=== PATIENT | male | born 1985 | race Caucasian/White ===

== ENCOUNTER 2016-09-23 16:33 | Inpatient (IN) | payer OTHER ==
[2016-09-23 19:24] VITALS: BMI 21.7
[2016-09-23] MEDS ORDERED: guaiFENesin/D-METHORPHAN HB 10 ML UNIT-DOSE CUPS PO PRN (21:04)
[2016-09-23] MEDS ORDERED: IBUPROFEN 400 MG TABLET (FP) PO PRN (21:04)
[2016-09-23] MEDS ORDERED: diazePAM 5 MG TABLET PO PRN (21:04)
[2016-09-23] MEDS ORDERED: MENTHOL/PHENOL 1 EACH UD MM PRN (21:04)
[2016-09-23] MEDS ORDERED: METHADONE HCL 10 MG TABLET (FOR DETOX USE ONLY) PO ONE ×2 (21:04→23:00)
[2016-09-23] MEDS ORDERED: ACETAMINOPHEN 325 MG TABLET (FP) PO PRN (21:04)
[2016-09-23] MEDS ORDERED: MAG HYDROX/AL HYDROX/SIMETH 30 ML UNIT-DOSE CUP PO PRN (21:04)
[2016-09-23] MEDS ORDERED: LOPERAMIDE HCL 2 MG CAPSULE PO PRN (21:04)
[2016-09-23] MEDS ORDERED: P-EPHED 60MG/TRIPROLIDI 2.5MG TABLET PO PRN (21:04)
[2016-09-23] MEDS ORDERED: MAGNESIUM HYDROX 2400MG/30ML ORAL SUSPENSION 30 ML CUP PO PRN (21:04)
[2016-09-23] MEDS ORDERED: MAGNESIUM CITRATE 300 ML BOTTLE PO PRN (21:04)
--- NOTE | 2016-09-23 21:04 | HP ---
COWS - Scale Resting Pulse: 1= [place] 81-100 Sweatin= Chills/Flushing Restless Observation: 3= Extraneous Movement Pupil Size: 0= Normal to Room Light Bone or Joint Aches: 2= Severe Diffuse Aches Runny Nose/ Eye Tearin= Runny Nose/Eyes GI Upset > 30mins: 1= Stomach Cramp Tremor Observation: 2= Slight Tremor Visible Yawning Observation: 0= None Anxiety or Irritability: 2=Irritable/Anxious Goose Flesh Skin: 3=Piloerection COWS Score: 17 Admission [facility] - HPI Chief Complaint: WITHDRAWAL SX Allergies/Adverse Reactions: Allergies Allergy/AdvReac Type Severity Reaction Status Date / Time No Known Allergies Allergy Verified 08/25/16 16:49 History of Present Illness: 31 YEARS OLD MALE WITH LONG HISTORY OF OPIATE DEPENDENCE, DENIES MEDICAL ISSUE HAS DEPRESSION, LONGEST SOBRIETY 5 MONTHS IS ADMITTED TO DETOX Exam Limitations: No Limitations - Ebola screening Have you traveled outside of the country in the last 21 days: No Have you had contact with anyone from an Ebola affected area: No Have you been sick,other than usual withdrawal symptoms: No Do you have a fever: No - Review of Systems Constitutional: Chills, Loss of Appetite, Changes in sleep, Unintentional Wgt. Loss EENT: reports: No Symptoms Reported Respiratory: reports: No Symptoms reported Cardiac: reports: No Symptoms Reported GI: reports: Constipated, Poor Fluid Intake, Abdominal cramping : reports: No Symptoms Reported Musculoskeletal: reports: Back Pain, Joint Pain, Muscle Pain, Neck Pain Integumentary: reports: No Symptoms Reported Neuro: reports: Tremors Endocrine: reports: No Symptoms Reported Hematology: reports: No Symptoms Reported Psychiatric: reports: Judgement Intact, Orientated x3, Depressed Other Systems: Reviewed and Negative Patient History - Patient Medical History Hx Anemia: No Hx Asthma: No Hx Chronic Obstructive Pulmonary Disease (COPD): No Hx Cancer: No Hx Cardiac Disorders: No Hx Congestive Heart Failure: No Hx Hypertension: No Hx Hypercholesterolemia: No Hx Pacemaker: No HX Cerebrovascular Accident: No Hx Seizures: No Hx Dementia: No Hx Diabetes: No Hx Gastrointestinal Disorders: No Hx Liver Disease: No Hx Genitourinary Disorders: No Hx Sexually Transmitted Disorders: No Hx Renal Disease (ESRD): No Hx Thyroid Disease: No Hx Human Immunodeficiency Virus (HIV): No (LAST 10/23 NEGATIVE) Hx Hepatitis C: No Hx Depression: No Hx Suicide Attempt: No Hx Bipolar Disorder: No Hx Schizophrenia: No - Patient Surgical History Past Surgical History: No Hx Neurologic Surgery: No Hx Cataract Extraction: No Hx Cardiac Surgery: No Hx Lung Surgery: No Hx Breast Surgery: No Hx Breast Biopsy: No Hx Abdominal Surgery: No Hx Appendectomy: No Hx Cholecystectomy: No Hx Genitourinary Surgery: No Hx Orthopedic Surgery: No - PPD History Previous Implant?: Yes Documented Results: Negative w/proof Implanted On Prior R Admission?: Yes Date: 05/12/16 Results: 0 MM PPD to be Administered?: No - Smoking Cessation Smoking history: Never smoked Have you smoked in the past 12 months: No Hx Chewing Tobacco Use: No Initiated information on smoking cessation: No - Substance & Tx. History Hx Alcohol Use: No Hx Substance Use: Yes Substance Use Type: Heroin, Opiates Hx Substance Use Treatment: Yes - Substances Abused Heroin Route: Inhalation Frequency: Daily Amount used: 10 BAGS Age of first use: 27 Date of Last Use: 09/23/16 Family Disease History - Family Disease History Family Disease History: [place]: Grandparent Admission Physical Exam BHS - Vital Signs Vital Signs: Vital Signs - 24 hr 09/23/16 19:22 Temperature 97.1 F L Pulse Rate 85 Respiratory 18 Rate Blood Pressure 123/79 - Physical General Appearance: Yes: Appropriately Dressed, Mild Distress, Thin, Tremorous, Irritable, Sweating, Anxious HEENTM: Yes: Hearing grossly Normal, Normal ENT Inspection, Normocephalic, Normal Voice Respiratory: Yes: Chest Non-Tender, Lungs Clear, Normal Breath Sounds, No Respiratory Distress, No Accessory Muscle Use Neck: Yes: Supple, Trachea in good position Breast: Yes: Breasts Symetrical Cardiology: Yes: Regular Rhythm, Regular Rate, S1, S2 Abdominal: Yes: Non Tender, Soft Genitourinary: Yes: Within Normal Limits Back: Yes: Normal Inspection Musculoskeletal: Yes: full range of Motion, Gait Steady, Back pain, Muscle Pain Extremities: Yes: Normal Inspection, Normal Range of Motion, Non-Tender, Tremors Neurological: Yes: Fully Oriented, Alert, Motor Strength 5/5, Normal Mood/Affect , Normal Response Integumentary: Yes: Warm Lymphatic: Yes: Within Normal Limits - Diagnostic (1) Opioid dependence with withdrawal Current Visit: Yes Status: Acute (2) Weight loss Current Visit: Yes Status: Acute (3) Depression (emotion) Current Visit: Yes Status: Suspected Qualifiers: Depression Type: dysthymia Qualified Code(s): F34.1 - Dysthymic disorder (4) Constipation Current Visit: Yes Status: Acute Qualifiers: Constipation type: slow transit constipation Qualified Code(s): K59.01 - Slow transit constipation Cleared for Admission [facility] - Detox or Rehab [facility] Level of Care: Medically Managed Detox Regimen/Protocol: Methadone [facility] Breath Alcohol Content Breath Alcohol Content: 0 Urine Drug Screen - Results Drug Screen Negative: No Urine Drug Screen Results: OPI-Opiates, BZO-Benzodiazepines, OXY-Oxycodone
[2016-09-23 23:30] LABS: URINE APPEARANCE CLEAR; URINE BILIRUBIN NEGATIVE (NEGATIVE); URINE BLOOD NEGATIVE (NEGATIVE); URINE COLOR YELLOW; URINE GLUCOSE (UA) NEGATIVE (NEGATIVE); URINE KETONE TRACE (NEGATIVE); URINE LEUK ESTERASE NEGATIVE (NEGATIVE); URINE NITRITE NEGATIVE (NEGATIVE); URINE PROTEIN NEGATIVE (NEGATIVE); URINE UROBILINOGEN NEGATIVE E.U./dl (0.2-1.0)
[2016-09-24] MEDS ORDERED: METHADONE HCL 10 MG TABLET (FOR DETOX USE ONLY) PO ONE ×4 (01:06→23:00)
[2016-09-24] MEDS: diazePAM 5 MG TABLET PO PRN ×4 (02:33→18:57)
[2016-09-24] MEDS: DOCUSATE SODIUM 100 MG CAPSULE (FP) PO SCH ×3 (04:46→22:04)
[2016-09-24] MEDS: THIAMINE HCL 100 MG TABLET (FP) PO SCH ×2 (04:47→22:04)
--- NOTE | 2016-09-24 10:13 | PN ---
BHS COWS - Scale Resting Pulse: 0= [place] 80 or Below Sweatin= Chills/Flushing Restless Observation: 3= Extraneous Movement Pupil Size: 2= Moderately Dilated Bone or Joint Aches: 4=Acute Joint/Muscle Pain Runny Nose/ Eye Tearin= Nasal Congestion GI Upset > 30mins: 1= Stomach Cramp Tremor Observation of Outstretched Hands: 2= Slight Tremor Visible Yawning Observation: 2= >3x During Session Anxiety or Irritability: 2=Irritable/Anxious Goose Flesh Skin: 0=Smooth Skin COWS Score: 18 BHS Progress Note (SOAP) Subjective: SLIGHT ANXIETY,SWEATS, FATIGUE Objective: 09/24/16 10:14 Vital Signs Temperature 98.5 F 09/24/16 06:25 Pulse Rate 78 09/24/16 06:25 Respiratory Rate 16 09/24/16 06:25 Blood Pressure 102/76 09/24/16 06:25 O2 Sat by Pulse Oximetry (%) Laboratory Last Values Urine Color Yellow 09/23/16 22:27 Urine Appearance Clear 09/23/16 22:27 Urine pH 7.0 (5.0-8.0) 09/23/16 22:27 Ur Specific [place] 1.024 (1.001-1.035) 09/23/16 22:27 Urine Protein Negative (NEGATIVE) 09/23/16 22:27 Urine Glucose (UA) Negative (NEGATIVE) 09/23/16 22:27 Urine Ketones Trace (NEGATIVE) H 09/23/16 22:27 Urine Blood Negative (NEGATIVE) 09/23/16 22:27 Urine Nitrite Negative (NEGATIVE) 09/23/16 22:27 Urine Bilirubin Negative (NEGATIVE) 09/23/16 22:27 Urine Urobilinogen Negative E.U./dl (0.2-1.0) 09/23/16 22:27 Ur Leukocyte Esterase Negative (NEGATIVE) 09/23/16 22:27 OTHER LABS PENDING Assessment: 09/24/16 10:15 WITHDRAWAL SX Plan: CONTINUE DETOX
[2016-09-24] MEDS: PRENATAL VITAMINS W/ FOLIC ACID TABLET (FP) PO SCH (10:15)
[2016-09-24 10:30] LABS: ALBUMIN 3.6 g/dl (3.4-5.0); ANION GAP 5 (8-16); BILIRUBIN,TOTAL 0.3 mg/dL (0.2-1.0); CALCIUM 8.3 mg/dL (8.5-10.1); CO2 33 mmol/L (21-32); CREATININE 1.1 mg/dL (0.7-1.3); GLUCOSE,RANDOM 96 mg/dL (74-106); SGOT/AST 39 U/L (15-37); SGPT/ALT 28 U/L (12-78); TOT PROT 6.6 g/dl (6.4-8.2)
[2016-09-24 10:31] LABS: ALK PHOS 61 U/L (45-117)
[2016-09-24 10:42] LABS: MCH 30.8 pg (25.7-33.7); MCHC 34.3 g/dl (32.0-35.9); MEAN PLT VOLUME 8.2 fl (7.5-11.1); PLATELET COUNT 213 K/MM3 (134-434); RDW 13.1 % (11.9-15.9)
--- NOTE | 2016-09-24 11:50 | EKG ---
Test Reason : Blood Pressure : / mmHG Vent. Rate : 057 BPM Atrial Rate : 057 BPM P-R Int : 168 ms QRS Dur : 094 ms QT Int : 424 ms P-R-T Axes : 075 043 042 degrees QTc Int : 412 ms SINUS BRADYCARDIA POSSIBLE LEFT ATRIAL ENLARGEMENT INCOMPLETE RIGHT BUNDLE BRANCH BLOCK BORDERLINE ECG NO PREVIOUS ECGS AVAILABLE Confirmed by JAMI GOYAL, [place]NE ([id number]) on 09/24/2016 11:50:23 AM Referred By: Christian Chan Confirmed By:CHEYENNE FARRELL MD
--- NOTE | 2016-09-24 11:59 | CONSULT ---
[facility] Psychiatric Consult - Data Date of interview: 09/24/16 Admission source: [facility] Identifying data: This is one of the multiple admissions to [address] [place] [address] for this 31 years old single male admitted for Opioid dependence. Psychiatric History: Patient reports depressed mood on and off,medicated himself with Heroin.No suicidal attempts,no previous psychiatric treatment reported.Patient is willing to start Lexapro. Physical/Sexual Abuse/Trauma History: denies Mental Status Exam - Mental Status Exam Alert and Oriented to: Time, Place, Person Cognitive Function: Grossly Intact Patient Appearance: Unkempt Mood: Sad, Anxious Affect: Mood Congruent Patient Behavior: Cooperative Speech Pattern: Clear Voice Loudness: Normal Thought Process: Goal Oriented Thought Disorder: Not Present Hallucinations: Denies Suicidal Ideation: Denies Homicidal Ideation: Denies Insight/Judgement: Fair Sleep: Fair Appetite: Good Muscle strength/Tone: Normal Gait/Station: Normal Psychiatric Findings - Problem List ([place] 1, 2,3) (1) Opioid dependence with withdrawal Current Visit: Yes Status: Chronic (2) Substance induced mood disorder Current Visit: Yes Status: Chronic (3) Benzodiazepine abuse Current Visit: Yes Status: Chronic - Initial Treatment Plan Initial Treatment Plan: Start lexapro 5 mg po daily.
[2016-09-24] MEDS: ESCITALOPRAM OXALATE 10 MG TABLET (FP) PO SCH (12:43)
[2016-09-24] MEDS: diphenhydrAMINE HCL 50 MG CAPSULE PO PRN (22:05)
[2016-09-25] MEDS: diazePAM 5 MG TABLET PO PRN ×4 (02:43→22:05)
[2016-09-25] MEDS ORDERED: METHADONE HCL 5 MG TABLET (FOR DETOX USE ONLY) PO ONE (10:00)
[2016-09-25] MEDS ORDERED: METHADONE HCL 10 MG TABLET (FOR DETOX USE ONLY) PO ONE (10:00)
[2016-09-25] MEDS: DOCUSATE SODIUM 100 MG CAPSULE (FP) PO SCH ×2 (10:20→22:07)
[2016-09-25] MEDS: ESCITALOPRAM OXALATE 10 MG TABLET (FP) PO SCH (10:20)
[2016-09-25] MEDS: PRENATAL VITAMINS W/ FOLIC ACID TABLET (FP) PO SCH (10:20)
--- NOTE | 2016-09-25 10:36 | PN ---
BHS COWS - Scale Resting Pulse: 0= [place] 80 or Below Sweatin= Chills/Flushing Restless Observation: 3= Extraneous Movement Pupil Size: 0= Normal to Room Light Bone or Joint Aches: 4=Acute Joint/Muscle Pain Runny Nose/ Eye Tearin= Nasal Congestion GI Upset > 30mins: 1= Stomach Cramp Tremor Observation of Outstretched Hands: 1= Tremor [place], Not Seen Yawning Observation: 2= >3x During Session Anxiety or Irritability: 2=Irritable/Anxious Goose Flesh Skin: 0=Smooth Skin COWS Score: 15 BHS Progress Note (SOAP) Subjective: ANXIETY,SWEATS,INTERMITTENT SLEEP Objective: 09/25/16 10:35 Vital Signs Temperature 96.8 F L 09/25/16 10:15 Pulse Rate 67 09/25/16 10:15 Respiratory Rate 18 09/25/16 10:15 Blood Pressure 112/71 09/25/16 10:15 O2 Sat by Pulse Oximetry (%) Laboratory Last Values WBC 5.0 K/mm3 (4.0-10.0) 09/24/16 07:00 RBC 4.35 M/mm3 (4.00-5.60) 09/24/16 07:00 Hgb 13.4 GM/dL (11.7-16.9) 09/24/16 07:00 Hct 39.2 % (35.4-49) 09/24/16 07:00 MCV 90.0 fl (80-96) 09/24/16 07:00 MCHC 34.3 g/dl (32.0-35.9) 09/24/16 07:00 RDW 13.1 % (11.9-15.9) 09/24/16 07:00 Plt Count 213 K/MM3 (134-434) 09/24/16 07:00 MPV 8.2 fl (7.5-11.1) 09/24/16 07:00 Sodium 140 mmol/L (136-145) 09/24/16 07:00 Potassium 3.7 mmol/L (3.5-5.1) 09/24/16 07:00 Chloride 102 mmol/L (98-107) 09/24/16 07:00 Carbon Dioxide 33 mmol/L (21-32) H 09/24/16 07:00 Anion Gap 5 (8-16) L 09/24/16 07:00 BUN 23 mg/dL (7-18) H D 09/24/16 07:00 Creatinine 1.1 mg/dL (0.7-1.3) 09/24/16 07:00 Creat Clearance w eGFR > 60 (>60) 09/24/16 07:00 Random Glucose 96 mg/dL (74-106) 09/24/16 07:00 Calcium 8.3 mg/dL (8.5-10.1) L 09/24/16 07:00 Total Bilirubin 0.3 mg/dL (0.2-1.0) D 09/24/16 07:00 AST 39 U/L (15-37) H D 09/24/16 07:00 ALT 28 U/L (12-78) D 09/24/16 07:00 Alkaline Phosphatase 61 U/L (45-117) 09/24/16 07:00 Total Protein 6.6 g/dl (6.4-8.2) 09/24/16 07:00 Albumin 3.6 g/dl (3.4-5.0) 09/24/16 07:00 Urine Color Yellow 09/23/16 22:27 Urine Appearance Clear 09/23/16 22:27 Urine pH 7.0 (5.0-8.0) 09/23/16 22:27 Ur Specific [place] 1.024 (1.001-1.035) 09/23/16 22:27 Urine Protein Negative (NEGATIVE) 09/23/16 22:27 Urine Glucose (UA) Negative (NEGATIVE) 09/23/16 22:27 Urine Ketones Trace (NEGATIVE) H 09/23/16 22:27 Urine Blood Negative (NEGATIVE) 09/23/16 22:27 Urine Nitrite Negative (NEGATIVE) 09/23/16 22:27 Urine Bilirubin Negative (NEGATIVE) 09/23/16 22:27 Urine Urobilinogen Negative E.U./dl (0.2-1.0) 09/23/16 22:27 Ur Leukocyte Esterase Negative (NEGATIVE) 09/23/16 22:27 RPR Titer Nonreactive (NONREACTIVE) 09/24/16 07:00 Assessment: 09/25/16 10:36 WITHDRAWAL SX Plan: CONTINUE DETOX
[2016-09-25] MEDS: THIAMINE HCL 100 MG TABLET (FP) PO SCH (22:04)
[2016-09-25] MEDS: diphenhydrAMINE HCL 50 MG CAPSULE PO PRN (22:05)
[2016-09-26] MEDS: diazePAM 5 MG TABLET PO PRN ×4 (05:46→22:07)
[2016-09-26] MEDS ORDERED: METHADONE HCL 5 MG TABLET (FOR DETOX USE ONLY) PO ONE ×2 (10:00)
[2016-09-26] MEDS: PRENATAL VITAMINS W/ FOLIC ACID TABLET (FP) PO SCH (10:29)
[2016-09-26] MEDS: ESCITALOPRAM OXALATE 10 MG TABLET (FP) PO SCH (10:29)
[2016-09-26] MEDS: DOCUSATE SODIUM 100 MG CAPSULE (FP) PO SCH ×2 (10:29→22:05)
--- NOTE | 2016-09-26 10:57 | PN ---
BHS Progress Note (SOAP) Subjective: DECREASED ANXIETY,TREMORS,SWEATS, SLEPT WELL. Objective: 09/26/16 10:57 Vital Signs Temperature 97.5 F L 09/26/16 10:10 Pulse Rate 67 09/26/16 10:10 Respiratory Rate 18 09/26/16 10:10 Blood Pressure 107/72 09/26/16 10:10 O2 Sat by Pulse Oximetry (%) Assessment: 09/26/16 10:57 DECREASED WITHDRAWAL SX Plan: CONTINUE DETOX
[2016-09-26] MEDS: diphenhydrAMINE HCL 50 MG CAPSULE PO PRN (22:05)
[2016-09-26] MEDS: THIAMINE HCL 100 MG TABLET (FP) PO SCH (22:05)
[2016-09-27] MEDS ORDERED: METHADONE HCL 5 MG TABLET (FOR DETOX USE ONLY) PO ONE (10:00)
[2016-09-27] MEDS ORDERED: METHADONE HCL 10 MG TABLET (FOR DETOX USE ONLY) PO ONE (10:00)
[2016-09-27] MEDS: DOCUSATE SODIUM 100 MG CAPSULE (FP) PO SCH ×2 (10:19→22:40)
[2016-09-27] MEDS: PRENATAL VITAMINS W/ FOLIC ACID TABLET (FP) PO SCH (10:19)
[2016-09-27] MEDS: ESCITALOPRAM OXALATE 10 MG TABLET (FP) PO SCH (10:21)
--- NOTE | 2016-09-27 11:15 | PN ---
BHS Progress Note (SOAP) Subjective: shakes and sweats Objective: 09/27/16 11:13 Vital Signs - 8 hr 09/27/16 09/27/16 09/27/16 03:30 06:29 10:59 Temperature 98.7 F 97.4 F L Pulse Rate 67 71 Respiratory 18 18 18 Rate Blood Pressure 95/60 104/66 Laboratory Last Values WBC 5.0 K/mm3 (4.0-10.0) 09/24/16 07:00 RBC 4.35 M/mm3 (4.00-5.60) 09/24/16 07:00 Hgb 13.4 GM/dL (11.7-16.9) 09/24/16 07:00 Hct 39.2 % (35.4-49) 09/24/16 07:00 MCV 90.0 fl (80-96) 09/24/16 07:00 MCHC 34.3 g/dl (32.0-35.9) 09/24/16 07:00 RDW 13.1 % (11.9-15.9) 09/24/16 07:00 Plt Count 213 K/MM3 (134-434) 09/24/16 07:00 MPV 8.2 fl (7.5-11.1) 09/24/16 07:00 Sodium 140 mmol/L (136-145) 09/24/16 07:00 Potassium 3.7 mmol/L (3.5-5.1) 09/24/16 07:00 Chloride 102 mmol/L (98-107) 09/24/16 07:00 Carbon Dioxide 33 mmol/L (21-32) H 09/24/16 07:00 Anion Gap 5 (8-16) L 09/24/16 07:00 BUN 23 mg/dL (7-18) H D 09/24/16 07:00 Creatinine 1.1 mg/dL (0.7-1.3) 09/24/16 07:00 Creat Clearance w eGFR > 60 (>60) 09/24/16 07:00 Random Glucose 96 mg/dL (74-106) 09/24/16 07:00 Calcium 8.3 mg/dL (8.5-10.1) L 09/24/16 07:00 Total Bilirubin 0.3 mg/dL (0.2-1.0) D 09/24/16 07:00 AST 39 U/L (15-37) H D 09/24/16 07:00 ALT 28 U/L (12-78) D 09/24/16 07:00 Alkaline Phosphatase 61 U/L (45-117) 09/24/16 07:00 Total Protein 6.6 g/dl (6.4-8.2) 09/24/16 07:00 Albumin 3.6 g/dl (3.4-5.0) 09/24/16 07:00 Urine Color Yellow 09/23/16 22:27 Urine Appearance Clear 09/23/16 22:27 Urine pH 7.0 (5.0-8.0) 09/23/16 22:27 Ur Specific [place] 1.024 (1.001-1.035) 09/23/16 22:27 Urine Protein Negative (NEGATIVE) 09/23/16 22:27 Urine Glucose (UA) Negative (NEGATIVE) 09/23/16 22:27 Urine Ketones Trace (NEGATIVE) H 09/23/16 22:27 Urine Blood Negative (NEGATIVE) 09/23/16 22:27 Urine Nitrite Negative (NEGATIVE) 09/23/16 22:27 Urine Bilirubin Negative (NEGATIVE) 09/23/16 22:27 Urine Urobilinogen Negative E.U./dl (0.2-1.0) 09/23/16 22:27 Ur Leukocyte Esterase Negative (NEGATIVE) 09/23/16 22:27 RPR Titer Nonreactive (NONREACTIVE) 09/24/16 07:00 Labs noted Assessment: 09/27/16 11:14 withdrawal sx Plan: continue detox
[2016-09-27] MEDS: THIAMINE HCL 100 MG TABLET (FP) PO SCH (22:39)
[2016-09-27] MEDS: diphenhydrAMINE HCL 50 MG CAPSULE PO PRN (22:40)
[2016-09-28] MEDS ORDERED: METHADONE HCL 5 MG TABLET (FOR DETOX USE ONLY) PO ONE (06:00)
[2016-09-28] MEDS ORDERED: METHADONE HCL 10 MG TABLET (FOR DETOX USE ONLY) PO ONE (10:00)
[2016-09-28] MEDS: PRENATAL VITAMINS W/ FOLIC ACID TABLET (FP) PO SCH (10:24)
[2016-09-28] MEDS: DOCUSATE SODIUM 100 MG CAPSULE (FP) PO SCH ×2 (10:26→22:26)
[2016-09-28] MEDS: ESCITALOPRAM OXALATE 10 MG TABLET (FP) PO SCH (10:26)
--- NOTE | 2016-09-28 11:25 | PN ---
BHS Progress Note (SOAP) Subjective: Sweating, anxious, restless Objective: 09/28/16 11:22 Last Vital Signs Temp Pulse Resp BP Pulse Ox 98.1 F 70 18 96/68 09/28/16 06:21 09/28/16 06:21 09/28/16 06:21 09/28/16 06:21 Laboratory Tests 09/23/16 09/24/16 09/24/16 22:27 07:00 07:00 WBC 5.0 RBC 4.35 Hgb 13.4 Hct 39.2 MCV 90.0 MCHC 34.3 RDW 13.1 Plt Count 213 MPV 8.2 Sodium 140 Potassium 3.7 Chloride 102 Carbon Dioxide 33 H Anion Gap 5 L BUN 23 H D Creatinine 1.1 Creat Clearance w eGFR > 60 Random Glucose 96 Calcium 8.3 L Total Bilirubin 0.3 D AST 39 H D ALT 28 D Alkaline Phosphatase 61 Total Protein 6.6 Albumin 3.6 Urine Color Yellow Urine Appearance Clear Urine pH 7.0 Ur Specific [place] 1.024 Urine Protein Negative Urine Glucose (UA) Negative Urine Ketones Trace H Urine Blood Negative Urine Nitrite Negative Urine Bilirubin Negative Urine Urobilinogen Negative Ur Leukocyte Esterase Negative RPR Titer 09/24/16 07:00 WBC RBC Hgb Hct MCV MCHC RDW Plt Count MPV Sodium Potassium Chloride Carbon Dioxide Anion Gap BUN Creatinine Creat Clearance w eGFR Random Glucose Calcium Total Bilirubin AST ALT Alkaline Phosphatase Total Protein Albumin Urine Color Urine Appearance Urine pH Ur Specific [place] Urine Protein Urine Glucose (UA) Urine Ketones Urine Blood Urine Nitrite Urine Bilirubin Urine Urobilinogen Ur Leukocyte Esterase RPR Titer Nonreactive Labs noted: azotemia Assessment: 09/28/16 11:23 Withdrawal symptoms Anxiety: requesting vistaril Noted with azotemia Plan: Continue detox Anxiety: vistaril 50mg PO q6hr prn, encouraged relaxation techniques (deep breathing exercises, watching TV etc) Azotemia: encouraged to drink lots of water
[2016-09-28] MEDS: hydrOXYzine PAMOATE 50 MG CAPSULE (FP) PO PRN (17:01)
[2016-09-28] MEDS: THIAMINE HCL 100 MG TABLET (FP) PO SCH (22:26)
[2016-09-29] MEDS: hydrOXYzine PAMOATE 50 MG CAPSULE (FP) PO PRN (05:32)
[2016-09-29] MEDS ORDERED: METHADONE HCL 5 MG TABLET (FOR DETOX USE ONLY) PO ONE (06:00)
[2016-09-29] MEDS: PRENATAL VITAMINS W/ FOLIC ACID TABLET (FP) PO SCH (09:21)
[2016-09-29] MEDS: ESCITALOPRAM OXALATE 10 MG TABLET (FP) PO SCH (09:21)
[2016-09-29] MEDS: DOCUSATE SODIUM 100 MG CAPSULE (FP) PO SCH (09:22)
[2016-09-29 09:28] VITALS: BP 128/80; PULSE 90; TEMP 97.8
--- NOTE | 2016-09-29 10:33 | DS ---
[facility] Detox Discharge Summary Admission Date: 09/23/16 Discharge Date: 09/29/16 - History Present History: Opioid Dependence Pertinent Past History: MOOD DISORDER - Physical Exam Results Vital Signs: Vital Signs Temperature 97.8 F 09/29/16 09:28 Pulse Rate 90 09/29/16 09:28 Respiratory Rate 18 09/29/16 09:28 Blood Pressure 128/80 09/29/16 09:28 O2 Sat by Pulse Oximetry (%) Pertinent Admission Physical Exam Findings: WITHDRAWAL SX. Laboratory Last Values WBC 5.0 K/mm3 (4.0-10.0) 09/24/16 07:00 RBC 4.35 M/mm3 (4.00-5.60) 09/24/16 07:00 Hgb 13.4 GM/dL (11.7-16.9) 09/24/16 07:00 Hct 39.2 % (35.4-49) 09/24/16 07:00 MCV 90.0 fl (80-96) 09/24/16 07:00 MCHC 34.3 g/dl (32.0-35.9) 09/24/16 07:00 RDW 13.1 % (11.9-15.9) 09/24/16 07:00 Plt Count 213 K/MM3 (134-434) 09/24/16 07:00 MPV 8.2 fl (7.5-11.1) 09/24/16 07:00 Sodium 140 mmol/L (136-145) 09/24/16 07:00 Potassium 3.7 mmol/L (3.5-5.1) 09/24/16 07:00 Chloride 102 mmol/L (98-107) 09/24/16 07:00 Carbon Dioxide 33 mmol/L (21-32) H 09/24/16 07:00 Anion Gap 5 (8-16) L 09/24/16 07:00 BUN 23 mg/dL (7-18) H D 09/24/16 07:00 Creatinine 1.1 mg/dL (0.7-1.3) 09/24/16 07:00 Creat Clearance w eGFR > 60 (>60) 09/24/16 07:00 Random Glucose 96 mg/dL (74-106) 09/24/16 07:00 Calcium 8.3 mg/dL (8.5-10.1) L 09/24/16 07:00 Total Bilirubin 0.3 mg/dL (0.2-1.0) D 09/24/16 07:00 AST 39 U/L (15-37) H D 09/24/16 07:00 ALT 28 U/L (12-78) D 09/24/16 07:00 Alkaline Phosphatase 61 U/L (45-117) 09/24/16 07:00 Total Protein 6.6 g/dl (6.4-8.2) 09/24/16 07:00 Albumin 3.6 g/dl (3.4-5.0) 09/24/16 07:00 Urine Color Yellow 09/23/16 22:27 Urine Appearance Clear 09/23/16 22:27 Urine pH 7.0 (5.0-8.0) 09/23/16 22:27 Ur Specific [place] 1.024 (1.001-1.035) 09/23/16 22:27 Urine Protein Negative (NEGATIVE) 09/23/16 22:27 Urine Glucose (UA) Negative (NEGATIVE) 09/23/16 22:27 Urine Ketones Trace (NEGATIVE) H 09/23/16 22:27 Urine Blood Negative (NEGATIVE) 09/23/16 22:27 Urine Nitrite Negative (NEGATIVE) 09/23/16 22:27 Urine Bilirubin Negative (NEGATIVE) 09/23/16 22:27 Urine Urobilinogen Negative E.U./dl (0.2-1.0) 09/23/16 22:27 Ur Leukocyte Esterase Negative (NEGATIVE) 09/23/16 22:27 RPR Titer Nonreactive (NONREACTIVE) 09/24/16 07:00 LABS NOTED - Treatment Hospital Course: Detox Protocol Followed, Detoxed Safely, Responded well, Discharged Condition Good, Rehab Referral Accepted - Medication Discharge Medications: Ambulatory Orders Escitalopram Oxalate [Lexapro -] 5 mg PO DAILY #30 tablet 09/24/16 - Diagnosis (1) Opioid dependence with withdrawal Current Visit: Yes Status: Chronic (2) Substance induced mood disorder Current Visit: Yes Status: Chronic - AMA Did Patient Leave Against Medical Advice: No
== END 2016-09-29 10:49 | disposition other institution (70) | DRG 773 ==
LOC: YASAS 16:33 → Y3N 21:41
PROVIDERS: ADMIT Internal Medicine; ATTEND Internal Medicine
PROC: HZ2ZZZZ Detoxification Services for Substance Abuse Treatment (ICD-10-PCS; principal; 2016-09-23)
DX: F11.23 Opioid dependence with withdrawal (principal); F13.10 Sedative, hypnotic or anxiolytic abuse, uncomplicated; F19.24 Other psychoactive substance dependence with psychoactive substance-induced mood disorder; F41.9 Anxiety disorder, unspecified; F34.1 Dysthymic disorder; K59.01 Slow transit constipation; Z87.898 Personal history of other specified conditions
CPT/HCPCS: 36415; 80053; 81003; 85027; 86593; 93005; 93010

== ENCOUNTER 2016-09-29 10:57 | Inpatient (IN) | payer OTHER ==
[2016-09-29 11:22] VITALS: BP 110/68; PULSE 62; TEMP 97.8; BMI 23.0
--- NOTE | 2016-09-29 11:41 | HP ---
Psychiatrist Admission - Data Date of interview: 09/29/16 Admission source: [facility] Identifying data: This is the first [facility] admission for this 31 years old single male, unemployed with no source of income, domiciled living with his parents Medical History: Unremarkable Psychiatric History: Denies history of previous psychiatric treatment prior to his recent admission to detox in this facility. There, he was seen by Dr Bragg who started him on lexapro 5 mg po daily for depression. Reports that he told Dr Bragg about feeling depressed on & off and medicated self with heroin. Told functional tester typewriters that he only feels depressed when he stopped using heroin. He does not think that he suffers from depression and needs to take medication. At present, reports doing and sleeping well Physical/Sexual Abuse/Trauma History: Denies history of physical,sexual abuse as well as DV relationship Additional Comment: Reports history of a misdemeanor arrest. Denies being on probation at present Vital Signs: Vital Signs - 24 hr 09/29/16 11:08 Temperature 97.8 F Pulse Rate 62 Respiratory 20 Rate Blood Pressure 110/68 Allergies/Adverse Reactions: Allergies Allergy/AdvReac Type Severity Reaction Status Date / Time No Known Allergies Allergy Verified 09/24/16 03:35 Date of last physical exam: 09/23/16 Concur with the findings of this exam: Yes - Substance Abuse/Tx History Hx Alcohol Use: No Hx Substance Use: Yes Substance Use Type: Heroin (Started using heroin at age 27, consumes 10 bagsdaily. Last used on 09/23/16) Hx Substance Use Treatment: Yes (6 previous inpt & 2 previous inpt rehab) - Admission Criteria Previous failed treatment: Yes Poor recovery environment: Yes Comorbidities: No Lacks judgement: Yes Mental Status Exam - Mental Status Exam Alert and Oriented to: Time, Place, Person Cognitive Function: Fair Patient Appearance: Well Groomed Mood: Hopeful, Euthymic Patient Behavior: Cooperative Speech Pattern: Clear Voice Loudness: Normal Thought Process: Intact Thought Disorder: Not Present Hallucinations: Denies Suicidal Ideation: Denies Homicidal Ideation: Denies Insight/Judgement: Fair Sleep: Fair Appetite: Good Muscle strength/Tone: Normal Gait/Station: Normal Psychiatric Findings - Problem List ([place] 1, 2,3) (1) Opioid dependence with withdrawal Current Visit: No Status: Chronic - Initial Treatment Plan Initial Treatment Plan: Monitor progress
[2016-09-29] MEDS ORDERED: MAGNESIUM HYDROX 2400MG/30ML ORAL SUSPENSION 30 ML CUP PO PRN (12:26)
[2016-09-29] MEDS ORDERED: P-EPHED 60MG/TRIPROLIDI 2.5MG TABLET PO PRN (12:26)
[2016-09-29] MEDS ORDERED: MENTHOL/PHENOL 1 EACH UD MM PRN (12:26)
[2016-09-29] MEDS ORDERED: IBUPROFEN 400 MG TABLET (FP) PO PRN (12:26)
[2016-09-29] MEDS ORDERED: ACETAMINOPHEN 325 MG TABLET (FP) PO PRN (12:26)
[2016-09-29] MEDS ORDERED: LOPERAMIDE HCL 2 MG CAPSULE PO PRN (12:26)
[2016-09-29] MEDS ORDERED: diphenhydrAMINE HCL 50 MG CAPSULE PO PRN (12:26)
[2016-09-29] MEDS ORDERED: guaiFENesin/D-METHORPHAN HB 10 ML UNIT-DOSE CUPS PO PRN (12:26)
[2016-09-29] MEDS ORDERED: MAGNESIUM CITRATE 300 ML BOTTLE PO PRN (12:26)
[2016-09-29] MEDS ORDERED: MAG HYDROX/AL HYDROX/SIMETH 30 ML UNIT-DOSE CUP PO PRN (12:26)
--- NOTE | 2016-09-29 14:35 | PN ---
Psychiatric Progress Note Vital Signs: Vital Signs Period Temp Pulse Resp BP Sys/Choudhary Pulse Ox Last 24 Hr 97.8 F 62 20 110/68 Date of Session: 09/29/16 Chief Complaint:: AMA Psychiatrist Discharge Note HPI: Patient addressing Opoid Dependence Current Medications: Active Medications Generic Name Dose Route Start Last Admin Trade Name Freq PRN Reason Stop Dose Admin Acetaminophen 650 mg 09/29/16 12:26 Tylenol - PO Q4H PRN FEVER OR PAIN Al Hydroxide/Mg Hydroxide 30 ml 09/29/16 12:26 Mylanta Oral Suspension - PO Q6H PRN DYSPEPSIA Diphenhydramine HCl 50 mg 09/29/16 12:26 Benadryl - PO HSMR1 PRN FOR ITCHING Eucalyptus/Menthol/Phenol/Sorbitol 1 each 09/29/16 12:26 Cepastat Lozenge - MM Q4H PRN SORE THROAT Guaifenesin 10 ml 09/29/16 12:26 Robitussin Dm - PO Q6H PRN COUGH Ibuprofen 400 mg 09/29/16 12:26 Motrin - PO Q6H PRN PAIN Loperamide HCl 4 mg 09/29/16 12:26 Imodium - PO Q6H PRN DIARRHEA Magnesium Citrate 300 ml 09/29/16 12:26 Citroma - PO 10/01/16 12:27 Q48H PRN CONSTIPATION Magnesium Hydroxide 30 ml 09/29/16 12:26 Milk Of Magnesia - PO DAILY PRN CONSTIPATION Multivit/Folic Acid/Iron 1 tab 09/30/16 10:00 Vitamins (Sjr) - PO DAILY ANALIA Pseudoephedrine/Triprolidine 1 combo 09/29/16 12:26 Actifed - PO TID PRN NASAL CONGESTION Thiamine HCl 100 mg 09/29/16 22:00 Vitamin B1 - PO HS ANALIA Current Side Effect: No Lab tests ordered: Yes Lab tests reviewed: Yes Provider note:: Patient requests to leave against medical advice today. He told documentation writer that he cannot deal with the "schedule". He is determined to leave despite encouragement to stay and complete this program. He is stable for discharge AMA Total face to face time:: 25 Mental Status Exam - Mental Status Exam Alert and Oriented to: Time, Place, Person Cognitive Function: Fair Patient Appearance: Well Groomed Mood: Hopeful Affect: Appropriate Patient Behavior: Cooperative Speech Pattern: Clear Voice Loudness: Normal Thought Process: Intact Thought Disorder: Not Present Hallucinations: Denies Suicidal Ideation: Denies Homicidal Ideation: Denies Insight/Judgement: Poor Appetite: Good Muscle strength/Tone: Normal Gait/Station: Normal Psychiatric Treatment Plan - Problem List (1) Opioid dependence with withdrawal Current Visit: No Initial treatment plan: Patient is leaving A
--- NOTE | 2016-09-29 16:10 | HP ---
ANDER GOYAL Rehab Assess/Revision - Admission History Ad[facility] to Rehab [facility] Date of Admission to Rehab: 09/29/16 - Vital signs Vital Signs: Vital Signs Period Temp Pulse Resp BP Sys/Choudhary Pulse Ox Last 24 Hr 97.8 F 62 20 110/68 - Findings Detox History & Physical reviewed: Yes Concur with findings: Yes Comments/Additional Findings: trasnferred from detox to rehab admission as per protocol
[2016-09-29] MEDS ORDERED: THIAMINE HCL 100 MG TABLET (FP) PO SCH (22:00)
[2016-09-30] MEDS ORDERED: PRENATAL VITAMINS W/ FOLIC ACID TABLET (FP) PO SCH (10:00)
== END 2016-09-29 15:00 | disposition left against medical advice (07) | DRG 770 ==
LOC: YASAS 10:57 → Y3W 10:58
PROVIDERS: ADMIT Psychiatry & Neurology Psychiatry; ATTEND Psychiatry & Neurology Psychiatry
PROC: HZ42ZZZ Group Counseling for Substance Abuse Treatment, Cognitive-Behavioral (ICD-10-PCS; principal; 2016-09-29)
DX: F11.20 Opioid dependence, uncomplicated (principal)

== ENCOUNTER 2017-06-15 15:54 | Inpatient (IN) | payer OTHER ==
[2017-06-15 18:29] VITALS: BMI 21.5
--- NOTE | 2017-06-15 20:03 | HP ---
COWS - Scale Resting Pulse: 0= [place] 80 or Below Sweatin= Chills/Flushing Restless Observation: 1= Difficult to Sit Still Pupil Size: 0= Normal to Room Light Bone or Joint Aches: 2= Severe Diffuse Aches Runny Nose/ Eye Tearin= Runny Nose/Eyes GI Upset > 30mins: 2= Nausea/Diarrhea Tremor Observation: 2= Slight Tremor Visible Yawning Observation: 1= 1-2x During Session Anxiety or Irritability: 2=Irritable/Anxious Goose Flesh Skin: 0=Smooth Skin COWS Score: 13 Admission ROS S - [facility] Chief Complaint: withdrawal sx patient refuses to meet with the psychiatrist while in detox Allergies/Adverse Reactions: Allergies Allergy/AdvReac Type Severity Reaction Status Date / Time No Known Allergies Allergy Verified 06/15/17 19:09 History of Present Illness: 31 years old male with long history of heroin dependence has weight loss, denies mental illness is admitted to detox Exam Limitations: No Limitations - Ebola screening Have you traveled outside of the country in the last 21 days: No Have you had contact with anyone from an Ebola affected area: No Have you been sick,other than usual withdrawal symptoms: No Do you have a fever: No - Review of Systems Constitutional: Loss of Appetite, Changes in sleep, Unintentional Wgt. Loss, Unexplained wgt Loss EENT: reports: No Symptoms Reported Respiratory: reports: No Symptoms reported Cardiac: reports: No Symptoms Reported GI: reports: Nausea, Poor Appetite, Poor Fluid Intake, Abdominal cramping : reports: No Symptoms Reported Musculoskeletal: reports: Back Pain, Joint Pain, Muscle Pain, Neck Pain Integumentary: reports: Change in Color (both inner elbows) Neuro: reports: Tremors Endocrine: reports: No Symptoms Reported Hematology: reports: No Symptoms Reported Psychiatric: reports: Judgement Intact, Mood/Affect Appropiate, Orientated x3 Other Systems: Reviewed and Negative Patient History - Patient Medical History Hx Anemia: No Hx Asthma: No Hx Chronic Obstructive Pulmonary Disease (COPD): No Hx Cancer: No Hx Cardiac Disorders: No Hx Congestive Heart Failure: No Hx Hypertension: No Hx Hypercholesterolemia: No Hx Pacemaker: No HX Cerebrovascular Accident: No Hx Seizures: No Hx Dementia: No Hx Diabetes: No Hx Gastrointestinal Disorders: No Hx Liver Disease: No Hx Genitourinary Disorders: No Hx Sexually Transmitted Disorders: No Hx Renal Disease (ESRD): No Hx Thyroid Disease: No Hx Human Immunodeficiency Virus (HIV): No (LAST 10/23 NEGATIVE) Hx Hepatitis C: No Hx Depression: No Hx Suicide Attempt: No Hx Bipolar Disorder: No Hx Schizophrenia: No - Patient Surgical History Past Surgical History: No Hx Neurologic Surgery: No Hx Cataract Extraction: No Hx Cardiac Surgery: No Hx Lung Surgery: No Hx Breast Surgery: No Hx Breast Biopsy: No Hx Abdominal Surgery: No Hx Appendectomy: No Hx Cholecystectomy: No Hx Genitourinary Surgery: No Hx Orthopedic Surgery: No - PPD History Previous Implant?: Yes Implanted On Prior [facility] Admission?: Yes Date: 08/07/16 Results: 0 mm PPD to be Administered?: No - Smoking Cessation Smoking history: Never smoked Have you smoked in the past 12 months: No Hx Chewing Tobacco Use: No Initiated information on smoking cessation: No - Substance & Tx. History Hx Alcohol Use: No Hx Substance Use: Yes Substance Use Type: Heroin Hx Substance Use Treatment: Yes (09/23-09/29/16 [facility]) - Substances Abused Heroin Route: Injection Frequency: Daily Amount used: 5 bags Age of first use: 28 Date of Last Use: 06/15/17 Family Disease History - Family Disease History Family History: Denies Family Disease History: CA: Grandparent Admission Physical Exam BHS - Vital Signs Vital Signs: Vital Signs - 24 hr 06/15/17 18:27 Temperature 98.5 F Pulse Rate 65 Respiratory 20 Rate Blood Pressure 118/67 - Physical General Appearance: Yes: Appropriately Dressed, Mild Distress, Thin, Tremorous, Irritable, Sweating, Anxious HEENTM: Yes: Hearing grossly Normal, Normal ENT Inspection, Normocephalic, Normal Voice Respiratory: Yes: Chest Non-Tender, Lungs Clear, Normal Breath Sounds, No Respiratory Distress, No Accessory Muscle Use Neck: Yes: Supple, Trachea in good position Breast: Yes: Breasts Symetrical Cardiology: Yes: Regular Rhythm, Regular Rate, S1, S2 Abdominal: Yes: Non Tender Genitourinary: Yes: Within Normal Limits Back: Yes: Normal Inspection Musculoskeletal: Yes: full range of Motion, Gait Steady, Back pain, Muscle Pain Extremities: Yes: Normal Range of Motion, Non-Tender, Tremors Neurological: Yes: Fully Oriented, Alert, Motor Strength 5/5, Normal Response Integumentary: Yes: Warm, Track Ram Lymphatic: Yes: Within Normal Limits - Diagnostic (1) Weight loss Current Visit: Yes Status: Acute (2) Opioid dependence with withdrawal Current Visit: Yes Status: Acute Cleared for Admission [facility] - Detox or Rehab [facility] Level of Care: Medically Managed Detox Regimen/Protocol: Methadone [facility] Breath Alcohol Content Breath Alcohol Content: 0 Urine Drug Screen - Results Drug Screen Negative: No Urine Drug Screen Results: OPI-Opiates
[2017-06-15] MEDS ORDERED: LOPERAMIDE HCL 2 MG CAPSULE PO PRN (20:04)
[2017-06-15] MEDS ORDERED: IBUPROFEN 400 MG TABLET (FP) PO PRN (20:04)
[2017-06-15] MEDS ORDERED: METHADONE HCL 10 MG TABLET (FOR DETOX USE ONLY) PO ONE ×2 (20:04→23:00)
[2017-06-15] MEDS ORDERED: P-EPHED 60MG/TRIPROLIDI 2.5MG TABLET PO PRN (20:04)
[2017-06-15] MEDS ORDERED: MENTHOL/PHENOL 1 EACH UD MM PRN (20:04)
[2017-06-15] MEDS ORDERED: MAG HYDROX/AL HYDROX/SIMETH 30 ML UNIT-DOSE CUP PO PRN (20:04)
[2017-06-15] MEDS ORDERED: ACETAMINOPHEN 325 MG TABLET (FP) PO PRN (20:04)
[2017-06-15] MEDS ORDERED: guaiFENesin/D-METHORPHAN HB 10 ML UNIT-DOSE CUPS PO PRN (20:04)
[2017-06-15] MEDS ORDERED: MAGNESIUM HYDROX 2400MG/30ML ORAL SUSPENSION 30 ML CUP PO PRN (20:04)
[2017-06-15] MEDS ORDERED: MAGNESIUM CITRATE 300 ML BOTTLE PO PRN (20:04)
[2017-06-15] MEDS: THIAMINE HCL 100 MG TABLET (FP) PO SCH (21:36)
[2017-06-15] MEDS: diazePAM 5 MG TABLET PO PRN (21:37)
[2017-06-15 23:17] LABS: URINE APPEARANCE CLEAR; URINE BILIRUBIN NEGATIVE (NEGATIVE); URINE BLOOD NEGATIVE (NEGATIVE); URINE COLOR YELLOW; URINE GLUCOSE (UA) NEGATIVE (NEGATIVE); URINE KETONE NEGATIVE (NEGATIVE); URINE NITRITE NEGATIVE (NEGATIVE); URINE PROTEIN NEGATIVE (NEGATIVE); URINE UROBILINOGEN NEGATIVE mg/dL (0.2-1.0)
[2017-06-16] MEDS: diazePAM 5 MG TABLET PO PRN ×5 (01:52→19:42)
[2017-06-16 09:56] LABS: URINE LEUK ESTERASE Negative (NEGATIVE)
[2017-06-16] MEDS ORDERED: METHADONE HCL 10 MG TABLET (FOR DETOX USE ONLY) PO ONE (10:00)
[2017-06-16 10:17] LABS: MCH 28.9 pg (25.7-33.7); MCHC 32.3 g/dl (32.0-35.9); MEAN CELL VOLUME 89.5 fl (80-96); MEAN PLT VOLUME 8.1 fl (7.5-11.1); PLATELET COUNT 251 K/MM3 (134-434); RDW 13.2 % (11.9-15.9); WHITE BLOOD COUNT 5.6 K/mm3 (4.0-10.0)
[2017-06-16 10:23] LABS: ALBUMIN 3.7 g/dl (3.4-5.0); ALK PHOS 75 U/L (45-117); ANION GAP 7 (8-16); BILIRUBIN,TOTAL 0.2 mg/dL (0.2-1.0); CALCIUM 8.8 mg/dL (8.5-10.1); CO2 32 mmol/L (21-32); GLUCOSE,RANDOM 72 mg/dL (74-106); SGOT/AST 16 U/L (15-37); SGPT/ALT 22 U/L (12-78); TOT PROT 7.6 g/dl (6.4-8.2)
[2017-06-16] MEDS: PRENATAL VITAMINS W/ FOLIC ACID TABLET (FP) PO SCH (10:23)
[2017-06-16 11:21] LABS: HIV 1 & 2 AB NEGATIVE; HIV 1 AGp24 NEGATIVE
--- NOTE | 2017-06-16 13:11 | PN ---
S COWS - Scale Resting Pulse: 0= [place] 80 or Below Sweatin=Flushed/Facial Moisture Restless Observation: 0= Sits Still Pupil Size: 0= Normal to Room Light Bone or Joint Aches: 2= Severe Diffuse Aches Runny Nose/ Eye Tearin= Nasal Congestion GI Upset > 30mins: 1= Stomach Cramp Tremor Observation of Outstretched Hands: 2= Slight Tremor Visible Yawning Observation: 1= 1-2x During Session Anxiety or Irritability: 2=Irritable/Anxious Goose Flesh Skin: 3=Piloerection COWS Score: 14 BHS Progress Note (SOAP) Subjective: Sweating, Tremors, Interrupted sleep, Body Aches. Objective: PT. A & O X 3. NO ACUTE DISTRESS. 06/16/17 13:09 Vital Signs Temperature 98.5 F 06/16/17 10:09 Pulse Rate 65 06/16/17 10:09 Respiratory Rate 18 06/16/17 10:09 Blood Pressure 109/72 06/16/17 10:09 O2 Sat by Pulse Oximetry (%) Laboratory Tests 06/15/17 06/16/17 06/16/17 23:00 07:00 07:00 WBC 5.6 RBC 4.91 Hgb 14.2 Hct 44.0 MCV 89.5 MCH 28.9 MCHC 32.3 RDW 13.2 Plt Count 251 MPV 8.1 Sodium Potassium Chloride Carbon Dioxide Anion Gap BUN Creatinine Creat Clearance w eGFR Random Glucose Calcium Total Bilirubin AST ALT Alkaline Phosphatase Total Protein Albumin Urine Color Yellow Urine Appearance Clear Urine pH 5.0 D Ur Specific [place] >= 1.030 H Urine Protein Negative Urine Glucose (UA) Negative Urine Ketones Negative Urine Blood Negative Urine Nitrite Negative Urine Bilirubin Negative Urine Urobilinogen Negative Ur Leukocyte Esterase Negative RPR Titer HIV 1&2 Antibody Screen Negative HIV P24 Antigen Negative 06/16/17 06/16/17 07:00 07:00 WBC RBC Hgb Hct MCV MCH MCHC RDW Plt Count MPV Sodium 140 Potassium 4.3 Chloride 101 Carbon Dioxide 32 Anion Gap 7 L BUN 22 H Creatinine 1.0 Creat Clearance w eGFR > 60 Random Glucose 72 L D Calcium 8.8 Total Bilirubin 0.2 D AST 16 D ALT 22 D Alkaline Phosphatase 75 D Total Protein 7.6 Albumin 3.7 Urine Color Urine Appearance Urine pH Ur Specific [place] Urine Protein Urine Glucose (UA) Urine Ketones Urine Blood Urine Nitrite Urine Bilirubin Urine Urobilinogen Ur Leukocyte Esterase RPR Titer Nonreactive HIV 1&2 Antibody Screen HIV P24 Antigen LABS NOTED. Assessment: 06/16/17 13:10 WITHDRAWAL SYMPTOMS. Plan: CONTINUE DETOX. INCREASE DAILY PO FLUID INTAKE.
--- NOTE | 2017-06-16 16:20 | CONSULT ---
[facility] Psychiatric Consult - Data Date of interview: 06/16/17 Admission source: [facility] Identifying data: Readmission to [facility] for this 31 y/o male seeking detox treatment on for heroin dependence.Patient is single without children,domiciled,unemployed and supported by relatives. Substance Abuse History: Patient confirmed an enduring history of heroin dependence. Smoking Cessation. Smoking history: Never smoked. Have you smoked in the past 12 months: No. Hx Chewing Tobacco Use: No. Initiated information on smoking cessation: No. - Substance & Tx. History. Hx Alcohol Use: No. Hx Substance Use: Yes. Substance Use Type: Heroin. Hx Substance Use Treatment: Yes (09/23-09/29/16 [facility]). - Substances Abused. Heroin. Route: Injection. Frequency: Daily. Amount used: 5 bags. Age of first use: 28. Date of Last Use: 06/15/17 Medical History: Patient endorses good general health. Psychiatric History: No reported history of psychiatric hospitalizations.Brief exposure to an SSRI agent (lexapro) during a previous admission to [facility].Dropped out of treatment in a matter of days after discharge from [facility].Mr Chaves comments that he has " no psychiatric issues " to be addressed and sees " no reason " to be on psychotropic medications other than drugs necessary for detoxification purposes.No history of suicide attempts. Physical/Sexual Abuse/Trauma History: No reported history of abuse. Additional Comment: Urine Drug Screen Results: OPI-Opiates.Noted. Mental Status Exam - Mental Status Exam Alert and Oriented to: Time, Place, Person Cognitive Function: Good Patient Appearance: Well Groomed Mood: Hopeful, Euthymic Affect: Appropriate, Normal Range Patient Behavior: Fatigued, Appropriate, Cooperative Speech Pattern: Clear Voice Loudness: Normal Thought Process: Intact, Goal Oriented Thought Disorder: Not Present Hallucinations: Denies Suicidal Ideation: Denies Homicidal Ideation: Denies Insight/Judgement: Poor Sleep: Well Appetite: Good Muscle strength/Tone: Normal Gait/Station: Normal Psychiatric Findings - Problem List ([place] 1, 2,3) (1) Opioid dependence with withdrawal Current Visit: Yes Status: Acute - Initial Treatment Plan Initial Treatment Plan: Psychoeducation.Detoxification.Observation.
[2017-06-16] MEDS: diphenhydrAMINE HCL 50 MG CAPSULE PO PRN (22:09)
[2017-06-16] MEDS: THIAMINE HCL 100 MG TABLET (FP) PO SCH (22:09)
[2017-06-17] MEDS: diazePAM 5 MG TABLET PO PRN ×4 (05:38→20:07)
[2017-06-17] MEDS ORDERED: METHADONE HCL 5 MG TABLET (FOR DETOX USE ONLY) PO ONE (10:00)
[2017-06-17] MEDS: PRENATAL VITAMINS W/ FOLIC ACID TABLET (FP) PO SCH (10:21)
--- NOTE | 2017-06-17 10:43 | EKG ---
Test Reason : Blood Pressure : / mmHG Vent. Rate : 061 BPM Atrial Rate : 061 BPM P-R Int : 174 ms QRS Dur : 096 ms QT Int : 416 ms P-R-T Axes : 069 041 050 degrees QTc Int : 418 ms NORMAL SINUS RHYTHM POSSIBLE LEFT ATRIAL ENLARGEMENT INCOMPLETE RIGHT BUNDLE BRANCH BLOCK BORDERLINE ECG WHEN COMPARED WITH ECG OF 24-SEP-2016 02:40, NO SIGNIFICANT CHANGE WAS FOUND Confirmed by JAMI GOYAL, [place] ([id number]) on 06/17/2017 10:42:48 AM Referred By: Confirmed By:CHEYENNE FARRELL MD
--- NOTE | 2017-06-17 13:06 | PN ---
BHS COWS - Scale Resting Pulse: 1= [place] 81-100 Sweatin=Flushed/Facial Moisture Restless Observation: 0= Sits Still Pupil Size: 0= Normal to Room Light Bone or Joint Aches: 1= Mild Discomfort Runny Nose/ Eye Tearin= Runny Nose/Eyes GI Upset > 30mins: 1= Stomach Cramp Tremor Observation of Outstretched Hands: 0= None Yawning Observation: 1= 1-2x During Session Anxiety or Irritability: 2=Irritable/Anxious Goose Flesh Skin: 3=Piloerection COWS Score: 13 BHS Progress Note (SOAP) Subjective: Sweating, Fatigue, Body Aches. Objective: PT. A & O X 3, OBSERVED AMBULATING ON UNIT. NO ACUTE DISTRESS. 06/17/17 13:05 Vital Signs Temperature 97.6 F 06/17/17 10:05 Pulse Rate 85 06/17/17 10:05 Respiratory Rate 20 06/17/17 10:05 Blood Pressure 109/77 06/17/17 10:05 O2 Sat by Pulse Oximetry (%) Laboratory Tests 06/15/17 06/16/17 06/16/17 23:00 07:00 07:00 WBC 5.6 RBC 4.91 Hgb 14.2 Hct 44.0 MCV 89.5 MCH 28.9 MCHC 32.3 RDW 13.2 Plt Count 251 MPV 8.1 Sodium Potassium Chloride Carbon Dioxide Anion Gap BUN Creatinine Creat Clearance w eGFR Random Glucose Calcium Total Bilirubin AST ALT Alkaline Phosphatase Total Protein Albumin Urine Color Yellow Urine Appearance Clear Urine pH 5.0 D Ur Specific [place] >= 1.030 H Urine Protein Negative Urine Glucose (UA) Negative Urine Ketones Negative Urine Blood Negative Urine Nitrite Negative Urine Bilirubin Negative Urine Urobilinogen Negative Ur Leukocyte Esterase Negative RPR Titer HIV 1&2 Antibody Screen Negative HIV P24 Antigen Negative 06/16/17 06/16/17 07:00 07:00 WBC RBC Hgb Hct MCV MCH MCHC RDW Plt Count MPV Sodium 140 Potassium 4.3 Chloride 101 Carbon Dioxide 32 Anion Gap 7 L BUN 22 H Creatinine 1.0 Creat Clearance w eGFR > 60 Random Glucose 72 L D Calcium 8.8 Total Bilirubin 0.2 D AST 16 D ALT 22 D Alkaline Phosphatase 75 D Total Protein 7.6 Albumin 3.7 Urine Color Urine Appearance Urine pH Ur Specific [place] Urine Protein Urine Glucose (UA) Urine Ketones Urine Blood Urine Nitrite Urine Bilirubin Urine Urobilinogen Ur Leukocyte Esterase RPR Titer Nonreactive HIV 1&2 Antibody Screen HIV P24 Antigen LABS NOTED. Assessment: 06/17/17 13:05 WITHDRAWAL SYMPTOMS. Plan: CONTINUE DETOX. INCREASE DAILY PO FLUID INTAKE.
[2017-06-17] MEDS: diphenhydrAMINE HCL 50 MG CAPSULE PO PRN (22:16)
[2017-06-17] MEDS: THIAMINE HCL 100 MG TABLET (FP) PO SCH (22:16)
[2017-06-18] MEDS: diazePAM 5 MG TABLET PO PRN ×3 (02:53→14:56)
[2017-06-18] MEDS ORDERED: METHADONE HCL 5 MG TABLET (FOR DETOX USE ONLY) PO ONE (10:00)
[2017-06-18] MEDS: PRENATAL VITAMINS W/ FOLIC ACID TABLET (FP) PO SCH (10:40)
--- NOTE | 2017-06-18 12:26 | PN ---
BHS Progress Note (SOAP) Subjective: Fatigue, anxious. Objective: PT. A & O X 3. NO ACUTE DISTRESS. 06/18/17 12:25 Vital Signs Temperature 97 F L 06/18/17 09:49 Pulse Rate 76 06/18/17 09:49 Respiratory Rate 18 06/18/17 09:49 Blood Pressure 93/69 06/18/17 09:49 O2 Sat by Pulse Oximetry (%) Laboratory Tests 06/15/17 06/16/17 06/16/17 23:00 07:00 07:00 WBC 5.6 RBC 4.91 Hgb 14.2 Hct 44.0 MCV 89.5 MCH 28.9 MCHC 32.3 RDW 13.2 Plt Count 251 MPV 8.1 Sodium Potassium Chloride Carbon Dioxide Anion Gap BUN Creatinine Creat Clearance w eGFR Random Glucose Calcium Total Bilirubin AST ALT Alkaline Phosphatase Total Protein Albumin Urine Color Yellow Urine Appearance Clear Urine pH 5.0 D Ur Specific [place] >= 1.030 H Urine Protein Negative Urine Glucose (UA) Negative Urine Ketones Negative Urine Blood Negative Urine Nitrite Negative Urine Bilirubin Negative Urine Urobilinogen Negative Ur Leukocyte Esterase Negative RPR Titer HIV 1&2 Antibody Screen Negative HIV P24 Antigen Negative 06/16/17 06/16/17 07:00 07:00 WBC RBC Hgb Hct MCV MCH MCHC RDW Plt Count MPV Sodium 140 Potassium 4.3 Chloride 101 Carbon Dioxide 32 Anion Gap 7 L BUN 22 H Creatinine 1.0 Creat Clearance w eGFR > 60 Random Glucose 72 L D Calcium 8.8 Total Bilirubin 0.2 D AST 16 D ALT 22 D Alkaline Phosphatase 75 D Total Protein 7.6 Albumin 3.7 Urine Color Urine Appearance Urine pH Ur Specific [place] Urine Protein Urine Glucose (UA) Urine Ketones Urine Blood Urine Nitrite Urine Bilirubin Urine Urobilinogen Ur Leukocyte Esterase RPR Titer Nonreactive HIV 1&2 Antibody Screen HIV P24 Antigen LABS NOTED. Assessment: 06/18/17 12:25 WITHDRAWAL SYMPTOMS. Plan: CONTINUE DETOX. INCREASE DAILY PO FLUID INTAKE.
[2017-06-18] MEDS: THIAMINE HCL 100 MG TABLET (FP) PO SCH (22:09)
[2017-06-18] MEDS: hydrOXYzine PAMOATE 50 MG CAPSULE (FP) PO PRN (22:11)
[2017-06-19] MEDS: hydrOXYzine PAMOATE 50 MG CAPSULE (FP) PO PRN (05:43)
[2017-06-19 06:40] VITALS: BP 111/76; PULSE 71; TEMP 96.5
[2017-06-19] MEDS ORDERED: METHADONE HCL 5 MG TABLET (FOR DETOX USE ONLY) PO ONE (09:32)
[2017-06-19] MEDS: PRENATAL VITAMINS W/ FOLIC ACID TABLET (FP) PO SCH (09:38)
[2017-06-19] MEDS ORDERED: METHADONE HCL 10 MG TABLET (FOR DETOX USE ONLY) PO ONE (10:00)
--- NOTE | 2017-06-19 12:55 | DS ---
[facility] Detox Discharge Summary Admission Date: 06/15/17 Discharge Date: 06/19/17 - History Present History: Opioid Dependence Additional Comments: DETOX COMPLETED. ALERT O X 3. NAD. PT ENCOURAGED TO FOLLOW UPT AT [facility] NEEDED. Pertinent Past History: OIC WEIGHT LOSS MOOD DISORDER - Physical Exam Results Vital Signs: Vital Signs Temperature 96.5 F L 06/19/17 06:40 Pulse Rate 71 06/19/17 06:40 Respiratory Rate 18 06/19/17 06:40 Blood Pressure 111/76 06/19/17 06:40 O2 Sat by Pulse Oximetry (%) Pertinent Admission Physical Exam Findings: WITHDRAWAL SX Laboratory Last Values WBC 5.6 K/mm3 (4.0-10.0) 06/16/17 07:00 RBC 4.91 M/mm3 (4.00-5.60) 06/16/17 07:00 Hgb 14.2 GM/dL (11.7-16.9) 06/16/17 07:00 Hct 44.0 % (35.4-49) 06/16/17 07:00 MCV 89.5 fl (80-96) 06/16/17 07:00 MCH 28.9 pg (25.7-33.7) 06/16/17 07:00 MCHC 32.3 g/dl (32.0-35.9) 06/16/17 07:00 RDW 13.2 % (11.9-15.9) 06/16/17 07:00 Plt Count 251 K/MM3 (134-434) 06/16/17 07:00 MPV 8.1 fl (7.5-11.1) 06/16/17 07:00 Sodium 140 mmol/L (136-145) 06/16/17 07:00 Potassium 4.3 mmol/L (3.5-5.1) 06/16/17 07:00 Chloride 101 mmol/L (98-107) 06/16/17 07:00 Carbon Dioxide 32 mmol/L (21-32) 06/16/17 07:00 Anion Gap 7 (8-16) L 06/16/17 07:00 BUN 22 mg/dL (7-18) H 06/16/17 07:00 Creatinine 1.0 mg/dL (0.7-1.3) 06/16/17 07:00 Creat Clearance w eGFR > 60 (>60) 06/16/17 07:00 Random Glucose 72 mg/dL (74-106) L D 06/16/17 07:00 Calcium 8.8 mg/dL (8.5-10.1) 06/16/17 07:00 Total Bilirubin 0.2 mg/dL (0.2-1.0) D 06/16/17 07:00 AST 16 U/L (15-37) D 06/16/17 07:00 ALT 22 U/L (12-78) D 06/16/17 07:00 Alkaline Phosphatase 75 U/L (45-117) D 06/16/17 07:00 Total Protein 7.6 g/dl (6.4-8.2) 06/16/17 07:00 Albumin 3.7 g/dl (3.4-5.0) 06/16/17 07:00 Urine Color Yellow 06/15/17 23:00 Urine Appearance Clear 06/15/17 23:00 Urine pH 5.0 (5.0-8.0) D 06/15/17 23:00 Ur Specific [place] >= 1.030 (1.005-1.025) H 06/15/17 23:00 Urine Protein Negative (NEGATIVE) 06/15/17 23:00 Urine Glucose (UA) Negative (NEGATIVE) 06/15/17 23:00 Urine Ketones Negative (NEGATIVE) 06/15/17 23:00 Urine Blood Negative (NEGATIVE) 06/15/17 23:00 Urine Nitrite Negative (NEGATIVE) 06/15/17 23:00 Urine Bilirubin Negative (NEGATIVE) 06/15/17 23:00 Urine Urobilinogen Negative mg/dL (0.2-1.0) 06/15/17 23:00 Ur Leukocyte Esterase Negative (NEGATIVE) 06/15/17 23:00 RPR Titer Nonreactive (NONREACTIVE) 06/16/17 07:00 HIV 1&2 Antibody Screen Negative 06/16/17 07:00 HIV P24 Antigen Negative 06/16/17 07:00 - Treatment Hospital Course: Detox Protocol Followed, Detoxed Safely, Responded well, Discharged Condition Good - Medication Discharge Medications: Ambulatory Orders Escitalopram Oxalate [Lexapro -] 5 mg PO DAILY #30 tablet 09/24/16 - Diagnosis (1) Constipation Status: Acute Qualifiers: Constipation type: slow transit constipation Qualified Code(s): K59.01 - Slow transit constipation; K59.01 - Slow transit constipation (2) Opioid dependence with withdrawal Status: Acute (3) Weight loss Status: Acute - AMA Did Patient Leave Against Medical Advice: No
[2017-06-20] MEDS ORDERED: METHADONE HCL 5 MG TABLET (FOR DETOX USE ONLY) PO ONE (06:00)
== END 2017-06-19 09:54 | disposition left against medical advice (07) | DRG 770 ==
LOC: YASAS 15:54 → Y3N 19:48
PROVIDERS: ADMIT Internal Medicine; ATTEND Internal Medicine
PROC: HZ2ZZZZ Detoxification Services for Substance Abuse Treatment (ICD-10-PCS; principal; 2017-06-15)
DX: F11.23 Opioid dependence with withdrawal (principal); K59.01 Slow transit constipation; Z87.898 Personal history of other specified conditions
CPT/HCPCS: 36415; 80053; 81003; 85027; 86593; 87389; 93005; 93010

== ENCOUNTER 2017-09-08 20:49 | Inpatient (IN) | payer OTHER ==
[~2017-09-08 20:49] MED LIST: METHADONE HCL 10 MG TABLET (FOR DETOX USE ONLY) PO ONE
[2017-09-08] MEDS ORDERED: METHADONE HCL 10 MG TABLET (FOR DETOX USE ONLY) PO ONE ×2 (23:00→23:50)
[2017-09-08 23:23] VITALS: BMI 21.5
--- NOTE | 2017-09-08 23:48 | HP ---
COWS - Scale Resting Pulse: 0= [place] 80 or Below Sweatin=Flushed/Facial Moisture Restless Observation: 1= Difficult to Sit Still Pupil Size: 1= Pupils >than Normal Bone or Joint Aches: 4=Acute Joint/Muscle Pain Runny Nose/ Eye Tearin= Runny Nose/Eyes GI Upset > 30mins: 3= Vomiting/Diarrhea (vomiting x 2) Tremor Observation: 2= Slight Tremor Visible Yawning Observation: 2= >3x During Session Anxiety or Irritability: 2=Irritable/Anxious Goose Flesh Skin: 0=Smooth Skin COWS Score: 19 Admission ROS S - [facility] Chief Complaint: Opioid withdrawal symptoms Allergies/Adverse Reactions: Allergies Allergy/AdvReac Type Severity Reaction Status Date / Time No Known Allergies Allergy Verified 09/08/17 23:40 History of Present Illness: 31 years old male with a long history of opioid dependence is admitted to detox. Patient has been in previous detox and reports 5 months of sobriety. He has past medical history of depression and denies suicidal ideation at this time. Exam Limitations: No Limitations - Ebola screening Have you traveled outside of the country in the last 21 days: No Have you had contact with anyone from an Ebola affected area: No Have you been sick,other than usual withdrawal symptoms: No Do you have a fever: No - Review of Systems Constitutional: Chills, Loss of Appetite, Malaise, Night Sweats, Changes in sleep EENT: reports: No Symptoms Reported Respiratory: reports: No Symptoms reported Cardiac: reports: No Symptoms Reported GI: reports: Nausea, Poor Appetite, Poor Fluid Intake, Abdominal cramping : reports: No Symptoms Reported Musculoskeletal: reports: Back Pain, Joint Pain, Muscle Pain, Muscle Weakness Integumentary: reports: Flushing Neuro: reports: Headache, Tingling, Tremors Endocrine: reports: No Symptoms Reported Hematology: reports: No Symptoms Reported Psychiatric: reports: Orientated x3, Agitated, Anxious Other Systems: Reviewed and Negative Patient History - Patient Medical History Hx Anemia: No Hx Asthma: No Hx Chronic Obstructive Pulmonary Disease (COPD): No Hx Cancer: No Hx Cardiac Disorders: No Hx Congestive Heart Failure: No Hx Hypertension: No Hx Hypercholesterolemia: No Hx Pacemaker: No HX Cerebrovascular Accident: No Hx Seizures: No Hx Dementia: No Hx Diabetes: No Hx Gastrointestinal Disorders: No Hx Liver Disease: No Hx Genitourinary Disorders: No Hx Sexually Transmitted Disorders: No Hx Renal Disease (ESRD): No Hx Thyroid Disease: No Hx Human Immunodeficiency Virus (HIV): No (LAST 10/23 NEGATIVE) Hx Hepatitis C: No Hx Depression: Yes Hx Suicide Attempt: No (Denies suicidal ideation) Hx Bipolar Disorder: No Hx Schizophrenia: No - Patient Surgical History Past Surgical History: No Hx Neurologic Surgery: No Hx Cataract Extraction: No Hx Cardiac Surgery: No Hx Lung Surgery: No Hx Abdominal Surgery: No Hx Appendectomy: No Hx Cholecystectomy: No Hx Genitourinary Surgery: No Hx Orthopedic Surgery: No Anesthesia Reaction: No - PPD History Previous Implant?: Yes Implanted On Prior [facility] Admission?: Yes Date: 08/07/16 Results: 0 mm PPD to be Administered?: Yes - Reproductive History Patient is a Female of Child Bearing Age (11 -55 yrs old): No (Male) - Smoking Cessation Smoking history: Never smoked Have you smoked in the past 12 months: No Hx Chewing Tobacco Use: No - Substance & Tx. History Hx Alcohol Use: No Hx Substance Use: Yes Substance Use Type: Heroin Hx Substance Use Treatment: Yes ([facility] ) - Substances Abused Heroin Route: Injection Frequency: Daily Amount used: 10 BAGS Age of first use: 26 Date of Last Use: 09/08/17 Family Disease History - Family Disease History Family Disease History: [place]: Grandparent Admission Physical Exam S - Vital Signs Vital Signs: Vital Signs - 24 hr 09/08/17 23:21 Temperature 96.6 F L Pulse Rate 53 L Respiratory 20 Rate Blood Pressure 100/62 - Physical General Appearance: Yes: Moderate Distress HEENTM: Yes: EOMI, Normal Voice, ALEJANDRA Respiratory: Yes: Lungs Clear, Normal Breath Sounds, No Respiratory Distress Neck: Yes: Supple Breast: Yes: Breast Exam Deferred Cardiology: Yes: Regular Rhythm, Regular Rate, S1, S2 Abdominal: Yes: Normal Bowel Sounds, Soft Genitourinary: Yes: Within Normal Limits Back: Yes: Normal Inspection Musculoskeletal: Yes: Back pain, Muscle Pain, Muscle weakness Extremities: Yes: Tremors Neurological: Yes: Within Normal Limits, Fully Oriented, Alert Integumentary: Yes: Dry, Cold Lymphatic: Yes: Within Normal Limits - Diagnostic (1) Opioid dependence with withdrawal Current Visit: Yes Status: Chronic (2) Benzodiazepine abuse Current Visit: Yes Status: Chronic (3) Depression (emotion) Current Visit: Yes Status: Chronic Qualifiers: Depression Type: dysthymia Qualified Code(s): F34.1 - Dysthymic disorder Cleared for Admission [facility] - Detox or Rehab [facility] Level of Care: Medically Managed Detox Regimen/Protocol: Methadone [facility] Breath Alcohol Content Breath Alcohol Content: 0 Urine Drug Screen - Results Drug Screen Negative: No Urine Drug Screen Results: OPI-Opiates, BZO-Benzodiazepines
[2017-09-08] MEDS ORDERED: MAGNESIUM HYDROX 2400MG/30ML ORAL SUSPENSION 30 ML CUP PO PRN (23:50)
[2017-09-08] MEDS ORDERED: guaiFENesin/D-METHORPHAN HB 10 ML UNIT-DOSE CUPS PO PRN (23:50)
[2017-09-08] MEDS ORDERED: IBUPROFEN 400 MG TABLET (FP) PO PRN (23:50)
[2017-09-08] MEDS ORDERED: LOPERAMIDE HCL 2 MG CAPSULE PO PRN (23:50)
[2017-09-08] MEDS ORDERED: P-EPHED 60MG/TRIPROLIDI 2.5MG TABLET PO PRN (23:50)
[2017-09-08] MEDS ORDERED: ACETAMINOPHEN 325 MG TABLET (FP) PO PRN (23:50)
[2017-09-08] MEDS ORDERED: MAGNESIUM CITRATE 300 ML BOTTLE PO PRN (23:50)
[2017-09-08] MEDS ORDERED: MENTHOL/PHENOL 1 EACH UD MM PRN (23:50)
[2017-09-08] MEDS ORDERED: MAG HYDROX/AL HYDROX/SIMETH 30 ML UNIT-DOSE CUP PO PRN (23:50)
[2017-09-09] MEDS: diazePAM 5 MG TABLET PO PRN ×4 (00:58→22:15)
[2017-09-09 09:43] LABS: HEMOGLOBIN 13.2 GM/dL (11.7-16.9); MCH 29.2 pg (25.7-33.7); MEAN CELL VOLUME 88.6 fl (80-96); MEAN PLT VOLUME 8.2 fl (7.5-11.1); PLATELET COUNT 185 K/MM3 (134-434); RBC 4.52 M/mm3 (4.00-5.60); RDW 13.4 % (11.9-15.9); WHITE BLOOD COUNT 4.2 K/mm3 (4.0-10.0)
[2017-09-09 09:49] LABS: CHLORIDE 106 mmol/L (98-107); POTASSIUM 3.9 mmol/L (3.5-5.1); SODIUM 141 mmol/L (136-145)
--- NOTE | 2017-09-09 09:51 | PN ---
[facility] CIWA - CIWA Score Nausea/Vomitin Muscle Tremors: 3 Anxiety: 3 Agitation: 2 Paroxysmal Sweats: 1-Minimal Palms Moist Orientation: 0-Oriented Tacttile Disturbances: 1-Very Mild Itch/Numbness Auditory Disturbances: 1-Very Mild Visual Disturbances: 0-None Headache: 2-Mild CIWA-Ar Total Score: 16 BHS COWS - Scale Resting Pulse: 0= [place] 80 or Below Sweatin= Chills/Flushing Restless Observation: 3= Extraneous Movement Pupil Size: 1= Pupils >than Normal Bone or Joint Aches: 2= Severe Diffuse Aches Runny Nose/ Eye Tearin= Runny Nose/Eyes GI Upset > 30mins: 2= Nausea/Diarrhea Tremor Observation of Outstretched Hands: 2= Slight Tremor Visible Yawning Observation: 1= 1-2x During Session Anxiety or Irritability: 2=Irritable/Anxious Goose Flesh Skin: 0=Smooth Skin COWS Score: 16 [facility] Progress Note (SOAP) Subjective: ALERT,IRRITABLE,ANXIOUS,INTERRUPTED SLEEP,TREMOR,PAIN IN THE BODY AND BACK Objective: 09/09/17 09:49 Vital Signs Temperature 97.5 F L 09/09/17 09:44 Pulse Rate 70 09/09/17 09:44 Respiratory Rate 18 09/09/17 09:44 Blood Pressure 120/62 09/09/17 09:44 O2 Sat by Pulse Oximetry (%) EKG SINUS BRADYCARDIA 47/MIN NO CHEST PAIN,NO SOB,NO DIZZINESS Laboratory Last Values WBC 4.2 K/mm3 (4.0-10.0) 09/09/17 07:30 RBC 4.52 M/mm3 (4.00-5.60) 09/09/17 07:30 Hgb 13.2 GM/dL (11.7-16.9) 09/09/17 07:30 Hct 40.0 % (35.4-49) 09/09/17 07:30 MCV 88.6 fl (80-96) 09/09/17 07:30 MCH 29.2 pg (25.7-33.7) 09/09/17 07:30 MCHC 33.0 g/dl (32.0-35.9) 09/09/17 07:30 RDW 13.4 % (11.9-15.9) 09/09/17 07:30 Plt Count 185 K/MM3 (134-434) D 09/09/17 07:30 MPV 8.2 fl (7.5-11.1) 09/09/17 07:30 LABS PENDING Assessment: 09/09/17 09:51 WITHDRAWAL SYMPTOM Plan: CONTINUE DETOX
[2017-09-09 09:54] LABS: ALBUMIN 3.3 g/dl (3.4-5.0); ALK PHOS 61 U/L (45-117); ANION GAP 6 (8-16); BILIRUBIN,TOTAL 0.3 mg/dL (0.2-1.0); BLOOD UREA NITROGEN 17 mg/dL (7-18); CALCIUM 8.2 mg/dL (8.5-10.1); CO2 29 mmol/L (21-32); CREATININE 0.9 mg/dL (0.7-1.3); GLUCOSE,RANDOM 112 mg/dL (74-106); SGOT/AST 27 U/L (15-37); SGPT/ALT 36 U/L (12-78); TOT PROT 6.5 g/dl (6.4-8.2)
[2017-09-09] MEDS ORDERED: METHADONE HCL 10 MG TABLET (FOR DETOX USE ONLY) PO ONE (10:00)
[2017-09-09] MEDS: PRENATAL VITAMINS W/ FOLIC ACID TABLET (FP) PO SCH (10:27)
[2017-09-09] MEDS: cloNIDine HCL 0.1 MG TABLET PO SCH ×2 (10:30→22:15)
--- NOTE | 2017-09-09 13:32 | EKG ---
Test Reason : Blood Pressure : / mmHG Vent. Rate : 047 BPM Atrial Rate : 047 BPM P-R Int : 190 ms QRS Dur : 094 ms QT Int : 472 ms P-R-T Axes : 035 032 053 degrees QTc Int : 417 ms SINUS BRADYCARDIA WITH SINUS ARRHYTHMIA INCOMPLETE RIGHT BUNDLE BRANCH BLOCK BORDERLINE ECG WHEN COMPARED WITH ECG OF 15-JUN-2017 21:43, NO SIGNIFICANT CHANGE WAS FOUND Confirmed by GODWIN KAT MD ([id number]) on 09/09/2017 1:32:24 PM Referred By: Confirmed By:GODWIN KAT MD
[2017-09-09] MEDS: CYCLOBENZAPRINE HCL 10 MG TABLET (FP) PO PRN (15:23)
[2017-09-09 18:46] LABS: URINE APPEARANCE CLEAR; URINE BILIRUBIN NEGATIVE (NEGATIVE); URINE BLOOD NEGATIVE (NEGATIVE); URINE COLOR LTYELLOW; URINE GLUCOSE (UA) NEGATIVE (NEGATIVE); URINE KETONE NEGATIVE (NEGATIVE); URINE LEUK ESTERASE NEGATIVE (NEGATIVE); URINE NITRITE NEGATIVE (NEGATIVE); URINE PROTEIN NEGATIVE (NEGATIVE); URINE UROBILINOGEN NEGATIVE mg/dL (0.2-1.0)
[2017-09-09] MEDS ORDERED: THIAMINE HCL 100 MG TABLET (FP) PO SCH (22:00)
[2017-09-10] MEDS ORDERED: METHADONE HCL 5 MG TABLET (FOR DETOX USE ONLY) PO ONE (10:00)
--- NOTE | 2017-09-10 10:04 | PN ---
S CIWA - CIWA Score Nausea/Vomitin Muscle Tremors: 3 Anxiety: 3 Agitation: 3 Paroxysmal Sweats: 1-Minimal Palms Moist Orientation: 0-Oriented Tacttile Disturbances: 1-Very Mild Itch/Numbness Auditory Disturbances: 1-Very Mild Visual Disturbances: 0-None Headache: 2-Mild CIWA-Ar Total Score: 17 BHS COWS - Scale Resting Pulse: 0= [place] 80 or Below Sweatin= Chills/Flushing Restless Observation: 3= Extraneous Movement Pupil Size: 1= Pupils >than Normal Bone or Joint Aches: 2= Severe Diffuse Aches Runny Nose/ Eye Tearin= Runny Nose/Eyes GI Upset > 30mins: 2= Nausea/Diarrhea Tremor Observation of Outstretched Hands: 1= Tremor [place], Not Seen Yawning Observation: 1= 1-2x During Session Anxiety or Irritability: 2=Irritable/Anxious Goose Flesh Skin: 0=Smooth Skin COWS Score: 15 S Progress Note (SOAP) Subjective: alert,irritable,anxious,interrupted sleep,tremor,pain in the body and back,poor appetite Objective: 09/10/17 10:02 Vital Signs Temperature 97.0 F L 09/10/17 04:00 Pulse Rate 48 L 09/10/17 04:00 Respiratory Rate 20 09/10/17 04:00 Blood Pressure 117/64 09/10/17 04:00 O2 Sat by Pulse Oximetry (%) Laboratory Last Values WBC 4.2 K/mm3 (4.0-10.0) 09/09/17 07:30 RBC 4.52 M/mm3 (4.00-5.60) 09/09/17 07:30 Hgb 13.2 GM/dL (11.7-16.9) 09/09/17 07:30 Hct 40.0 % (35.4-49) 09/09/17 07:30 MCV 88.6 fl (80-96) 09/09/17 07:30 MCH 29.2 pg (25.7-33.7) 09/09/17 07:30 MCHC 33.0 g/dl (32.0-35.9) 09/09/17 07:30 RDW 13.4 % (11.9-15.9) 09/09/17 07:30 Plt Count 185 K/MM3 (134-434) D 09/09/17 07:30 MPV 8.2 fl (7.5-11.1) 09/09/17 07:30 Sodium 141 mmol/L (136-145) 09/09/17 07:30 Potassium 3.9 mmol/L (3.5-5.1) 09/09/17 07:30 Chloride 106 mmol/L (98-107) 09/09/17 07:30 Carbon Dioxide 29 mmol/L (21-32) 09/09/17 07:30 Anion Gap 6 (8-16) L 09/09/17 07:30 BUN 17 mg/dL (7-18) D 09/09/17 07:30 Creatinine 0.9 mg/dL (0.7-1.3) 09/09/17 07:30 Creat Clearance w eGFR > 60 (>60) 09/09/17 07:30 Random Glucose 112 mg/dL (74-106) H D 09/09/17 07:30 Calcium 8.2 mg/dL (8.5-10.1) L 09/09/17 07:30 Total Bilirubin 0.3 mg/dL (0.2-1.0) D 09/09/17 07:30 AST 27 U/L (15-37) D 09/09/17 07:30 ALT 36 U/L (12-78) D 09/09/17 07:30 Alkaline Phosphatase 61 U/L (45-117) 09/09/17 07:30 Total Protein 6.5 g/dl (6.4-8.2) 09/09/17 07:30 Albumin 3.3 g/dl (3.4-5.0) L 09/09/17 07:30 Urine Color Ltyellow 09/09/17 15:00 Urine Appearance Clear 09/09/17 15:00 Urine pH 7.0 (5.0-8.0) D 09/09/17 15:00 Ur Specific [place] 1.017 (1.001-1.035) 09/09/17 15:00 Urine Protein Negative (NEGATIVE) 09/09/17 15:00 Urine Glucose (UA) Negative (NEGATIVE) 09/09/17 15:00 Urine Ketones Negative (NEGATIVE) 09/09/17 15:00 Urine Blood Negative (NEGATIVE) 09/09/17 15:00 Urine Nitrite Negative (NEGATIVE) 09/09/17 15:00 Urine Bilirubin Negative (NEGATIVE) 09/09/17 15:00 Urine Urobilinogen Negative mg/dL (0.2-1.0) 09/09/17 15:00 Ur Leukocyte Esterase Negative (NEGATIVE) 09/09/17 15:00 RPR Titer Nonreactive (NONREACTIVE) 09/09/17 07:30 Assessment: 09/10/17 10:03 withdrawal symptom Plan: continue detox,bgm monitoring daily bgm,initial glucose is 112
[2017-09-10] MEDS: PRENATAL VITAMINS W/ FOLIC ACID TABLET (FP) PO SCH (10:09)
[2017-09-10] MEDS: cloNIDine HCL 0.1 MG TABLET PO SCH (10:09)
[2017-09-10] MEDS: diazePAM 5 MG TABLET PO PRN (10:09)
[2017-09-10] MEDS: CYCLOBENZAPRINE HCL 10 MG TABLET (FP) PO PRN (10:09)
--- NOTE | 2017-09-10 17:06 | PN ---
S Progress Note Note: patient did not want to complete treatment,stated has to go to work tomorrow, signed release ama
--- NOTE | 2017-09-10 17:11 | DS ---
[facility] Detox Discharge Summary Admission Date: 09/08/17 Discharge Date: 09/10/17 - History Present History: Opioid Dependence, Sedative Dependence Additional Comments: patient did not want to complete treatment stated has to go to work tomorrow,signed release ama,did not want to wait - Physical Exam Results Vital Signs: Vital Signs Temperature 98.1 F 09/10/17 14:53 Pulse Rate 72 09/10/17 14:53 Respiratory Rate 16 09/10/17 14:53 Blood Pressure 113/66 09/10/17 14:53 O2 Sat by Pulse Oximetry (%) Pertinent Admission Physical Exam Findings: withdrawal symptom Vital Signs Temperature 98.1 F 09/10/17 14:53 Pulse Rate 72 09/10/17 14:53 Respiratory Rate 16 09/10/17 14:53 Blood Pressure 113/66 09/10/17 14:53 O2 Sat by Pulse Oximetry (%) - Medication Discharge Medications: Ambulatory Orders Escitalopram Oxalate [Lexapro -] 5 mg PO DAILY #30 tablet 09/24/16 - Diagnosis (1) Uncomplicated sedative, hypnotic or anxiolytic withdrawal Current Visit: Yes Status: Acute (2) Opioid dependence with withdrawal Current Visit: Yes Status: Chronic (3) Weight loss Current Visit: No Status: Acute - AMA Did Patient Leave Against Medical Advice: Yes
[2017-09-10 19:15] VITALS: BP 113/66; PULSE 72; TEMP 98.1
[2017-09-11] MEDS ORDERED: METHADONE HCL 5 MG TABLET (FOR DETOX USE ONLY) PO ONE (10:00)
[2017-09-12] MEDS ORDERED: METHADONE HCL 10 MG TABLET (FOR DETOX USE ONLY) PO ONE (10:00)
[2017-09-13] MEDS ORDERED: METHADONE HCL 5 MG TABLET (FOR DETOX USE ONLY) PO ONE (06:00)
== END 2017-09-10 17:12 | disposition left against medical advice (07) | DRG 770 ==
LOC: YASAS 20:49 → Y6N 23:45
PROVIDERS: ADMIT Internal Medicine; ATTEND Internal Medicine
PROC: HZ2ZZZZ Detoxification Services for Substance Abuse Treatment (ICD-10-PCS; principal; 2017-09-08)
DX: F11.23 Opioid dependence with withdrawal (principal); F13.230 Sedative, hypnotic or anxiolytic dependence with withdrawal, uncomplicated; F34.1 Dysthymic disorder; R00.1 Bradycardia, unspecified; Z87.898 Personal history of other specified conditions
CPT/HCPCS: 36415; 80053; 81003; 85027; 86593; 93005; 93010

== ENCOUNTER 2017-12-08 22:36 | Inpatient (IN) | payer OTHER ==
--- NOTE | 2017-12-08 23:21 | HP ---
COWS - Scale Resting Pulse: 2= [place] 101-120 Sweatin=Flushed/Facial Moisture Restless Observation: 5= Unable to Sit Still Pupil Size: 1= Pupils >than Normal Bone or Joint Aches: 0= None Runny Nose/ Eye Tearin= None GI Upset > 30mins: 0= None Tremor Observation: 0= None Yawning Observation: 0= None Anxiety or Irritability: 4=Extreme Anxiety Goose Flesh Skin: 0=Smooth Skin COWS Score: 14 Admission ROS S - HPI Chief Complaint: C/O WITHDRAWAL SX'S FROM HEROIN. SEEKING DETOX TXMENT Allergies/Adverse Reactions: Allergies Allergy/AdvReac Type Severity Reaction Status Date / Time No Known Allergies Allergy Verified 12/08/17 23:10 History of Present Illness: 32 Y.O. MALE WITH HX/O OPIOID DEPENDENCE HERE FOR DETOX. CLIENT IS KNOWN TO THIS PROGRAM. LAST HERE 2017. DENIES DETOX SINCE. SELF REFERRED. DENIES ANY SIGNIFICANT PERIOD OF CLEAN TIME. Exam Limitations: No Limitations - Ebola screening Have you traveled outside of the country in the last 21 days: No Have you had contact with anyone from an Ebola affected area: No Have you been sick,other than usual withdrawal symptoms: No Do you have a fever: Yes - Review of Systems Constitutional: Loss of Appetite, Night Sweats, Changes in sleep, Unintentional Wgt. Loss EENT: reports: No Symptoms Reported, Other (RUNNY NOSE) Respiratory: reports: Shortness of Breath Cardiac: reports: No Symptoms Reported GI: reports: No Symptoms Reported : reports: Other (HESITANCY) Musculoskeletal: reports: No Symptoms Reported Integumentary: reports: No Symptoms Reported Neuro: reports: No Symptoms reported Endocrine: reports: No Symptoms Reported Hematology: reports: No Symptoms Reported Psychiatric: reports: Anxious Other Systems: Reviewed and Negative Patient History - Patient Medical History Hx Anemia: No Hx Asthma: No Hx Chronic Obstructive Pulmonary Disease (COPD): No Hx Cancer: No Hx Cardiac Disorders: No Hx Congestive Heart Failure: No Hx Hypertension: No Hx Hypercholesterolemia: No Hx Pacemaker: No HX Cerebrovascular Accident: No Hx Seizures: No Hx Dementia: No Hx Diabetes: No Hx Gastrointestinal Disorders: No Hx Liver Disease: No Hx Genitourinary Disorders: No Hx Sexually Transmitted Disorders: No Hx Renal Disease (ESRD): No Hx Thyroid Disease: No Hx Human Immunodeficiency Virus (HIV): No Hx Hepatitis C: No Hx Depression: Yes (NON COMPLAINT WITH LEXAPRO) Hx Suicide Attempt: No Hx Bipolar Disorder: No Hx Schizophrenia: No Other Medical History: DENIES - Patient Surgical History Past Surgical History: No Hx Neurologic Surgery: No Hx Cataract Extraction: No Hx Cardiac Surgery: No Hx Lung Surgery: No Hx Breast Surgery: No Hx Breast Biopsy: No Hx Abdominal Surgery: No Hx Appendectomy: No Hx Cholecystectomy: No Hx Genitourinary Surgery: No Hx Section: No Hx Orthopedic Surgery: No Anesthesia Reaction: No - PPD History Previous Implant?: Yes Documented Results: Negative w/proof Implanted On Prior [facility] Admission?: Yes Date: 08/07/16 Results: 0 mm PPD to be Administered?: Yes - Smoking Cessation Smoking history: Current some day smoker Have you smoked in the past 12 months: Yes Aproximately how many cigarettes per day: 1 Cigars Per Day: 0 Hx Chewing Tobacco Use: No Initiated information on smoking cessation: Yes 'Breaking Loose' booklet given: 12/08/17 - Substance & Tx. History Hx Alcohol Use: No Hx Substance Use: Yes Substance Use Type: Heroin Hx Substance Use Treatment: Yes ([facility]) - Substances Abused HEROIN Route: Injection Frequency: Daily Amount used: 5 BAGS Age of first use: 26 Date of Last Use: 12/08/17 Family Disease History - Family Disease History Family Disease History: [place]: Grandparent Admission Physical Exam [facility] - Physical General Appearance: Yes: Appropriately Dressed, Anxious HEENTM: Yes: EOMI, Normocephalic, Normal Voice, ALEJANDRA, Pharynx Normal, Other ( RINORRHEA) Respiratory: Yes: Chest Non-Tender, Lungs Clear, Normal Breath Sounds, No Respiratory Distress, No Accessory Muscle Use Neck: Yes: No masses,lesions,Nodules, Supple, Trachea in good position Breast: Yes: Breast Exam Deferred Cardiology: Yes: Regular Rhythm, S1, S2, Tachycardia Abdominal: Yes: Normal Bowel Sounds, Non Tender, Flat, Soft Genitourinary: Yes: Within Normal Limits Back: Yes: Normal Inspection Musculoskeletal: Yes: full range of Motion, Gait Steady Extremities: Yes: Normal Inspection, Normal Range of Motion, Non-Tender Neurological: Yes: Fully Oriented, Alert, Motor Strength 5/5 Integumentary: Yes: Normal Color, Dry, Warm, Track Ram (TO BUE) Lymphatic: Yes: Within Normal Limits - Diagnostic (1) Nicotine dependence Current Visit: Yes Status: Chronic Qualifiers: Nicotine product type: cigarettes Substance use status: uncomplicated Qualified Code(s): F17.210 - Nicotine dependence, cigarettes, uncomplicated (2) Opioid dependence with withdrawal Current Visit: Yes Status: Chronic Cleared for Admission BHS - Detox or Rehab [facility] Level of Care: Medically Managed Detox Regimen/Protocol: Methadone Claeared for Rehab Admission: No BHS Breath Alcohol Content Breath Alcohol Content: 0 Vital Signs - Vital Signs Vital Signs Refused: No Temperature: 97.7 F Temperature Source: Oral Pulse Rate: 101 Respiratory Rate: 22 Blood Pressure: 113/74 BP Location: Right Arm Blood Pressure Position: Sitting - Height Height: 5 ft 9 in - Weight Weight: 65.317 kg Weight Measurement Method: Standing Scale Body Mass Index (BMI): 21.2 - Bowel Function Bowel Movement: No Urine Drug Screen - Test Device Lot Number: [id number] Expiration Date: 10/07/19 - Control Is Test Valid: Yes - Results Drug Screen Negative: No Urine Drug Screen Results: OPI-Opiates
[2017-12-08] MEDS ORDERED: P-EPHED 60MG/TRIPROLIDI 2.5MG TABLET PO PRN (23:28)
[2017-12-08] MEDS ORDERED: MENTHOL/PHENOL 1 EACH UD MM PRN (23:28)
[2017-12-08] MEDS ORDERED: guaiFENesin/D-METHORPHAN HB 10 ML UNIT-DOSE CUPS PO PRN (23:28)
[2017-12-08] MEDS ORDERED: IBUPROFEN 400 MG TABLET (FP) PO PRN (23:28)
[2017-12-08] MEDS ORDERED: NICOTINE POLACRILEX 2 MG GUM BC PRN (23:28)
[2017-12-08] MEDS ORDERED: ACETAMINOPHEN 325 MG TABLET (FP) PO PRN (23:28)
[2017-12-08] MEDS ORDERED: MAGNESIUM CITRATE 300 ML BOTTLE PO PRN (23:28)
[2017-12-08] MEDS ORDERED: MAG HYDROX/AL HYDROX/SIMETH 30 ML UNIT-DOSE CUP PO PRN (23:28)
[2017-12-08] MEDS ORDERED: LOPERAMIDE HCL 2 MG CAPSULE PO PRN (23:28)
[2017-12-08] MEDS ORDERED: MAGNESIUM HYDROX 2400MG/30ML ORAL SUSPENSION 30 ML CUP PO PRN (23:28)
[2017-12-08 23:36] VITALS: BMI 21.2
[2017-12-09] MEDS ORDERED: METHADONE HCL 10 MG TABLET (FOR DETOX USE ONLY) PO ONE ×3 (00:01→23:00)
[2017-12-09] MEDS: diazePAM 5 MG TABLET PO PRN ×5 (00:30→19:22)
[2017-12-09 10:11] LABS: HEMATOCRIT 39.2 % (35.4-49); HEMOGLOBIN 13.3 GM/dL (11.7-16.9); MCH 29.7 pg (25.7-33.7); MCHC 34.1 g/dl (32.0-35.9); MEAN CELL VOLUME 87.1 fl (80-96); MEAN PLT VOLUME 7.6 fl (7.5-11.1); PLATELET COUNT 235 K/MM3 (134-434); RDW 13.7 % (11.9-15.9); WHITE BLOOD COUNT 5.8 K/mm3 (4.0-10.0)
[2017-12-09] MEDS: PRENATAL VITAMINS W/ FOLIC ACID TABLET (FP) PO SCH (10:39)
[2017-12-09 10:47] LABS: CHLORIDE 106 mmol/L (98-107); POTASSIUM 3.7 mmol/L (3.5-5.1); SODIUM 136 mmol/L (136-145)
[2017-12-09 11:04] LABS: ALBUMIN 3.5 g/dl (3.4-5.0); ALK PHOS 71 U/L (45-117); ANION GAP 2 (8-16); BILIRUBIN,TOTAL 0.3 mg/dL (0.2-1.0); BLOOD UREA NITROGEN 20 mg/dL (7-18); CALCIUM 8.6 mg/dL (8.5-10.1); CO2 28 mmol/L (21-32); CREATININE 0.9 mg/dL (0.7-1.3); GLUCOSE,RANDOM 85 mg/dL (74-106); SGOT/AST 14 U/L (15-37); SGPT/ALT 23 U/L (12-78); TOT PROT 7.2 g/dl (6.4-8.2)
--- NOTE | 2017-12-09 11:52 | PN ---
BHS COWS - Scale Resting Pulse: 0= [place] 80 or Below Sweatin= Chills/Flushing Restless Observation: 3= Extraneous Movement Pupil Size: 0= Normal to Room Light Bone or Joint Aches: 2= Severe Diffuse Aches Runny Nose/ Eye Tearin= None GI Upset > 30mins: 0= None Tremor Observation of Outstretched Hands: 2= Slight Tremor Visible Yawning Observation: 2= >3x During Session Anxiety or Irritability: 2=Irritable/Anxious Goose Flesh Skin: 0=Smooth Skin COWS Score: 12 BHS Progress Note (SOAP) Subjective: ANXIETY,SWEATS,INTERMITTENT SLEEP. Objective: 12/09/17 11:52 Vital Signs Temperature 96.6 F L 12/09/17 09:30 Pulse Rate 68 12/09/17 09:30 Respiratory Rate 16 12/09/17 09:30 Blood Pressure 98/66 12/09/17 09:30 O2 Sat by Pulse Oximetry (%) Laboratory Last Values WBC 5.8 K/mm3 (4.0-10.0) D 12/09/17 07:00 RBC 4.50 M/mm3 (4.00-5.60) 12/09/17 07:00 Hgb 13.3 GM/dL (11.7-16.9) 12/09/17 07:00 Hct 39.2 % (35.4-49) 12/09/17 07:00 MCV 87.1 fl (80-96) 12/09/17 07:00 MCH 29.7 pg (25.7-33.7) 12/09/17 07:00 MCHC 34.1 g/dl (32.0-35.9) 12/09/17 07:00 RDW 13.7 % (11.9-15.9) 12/09/17 07:00 Plt Count 235 K/MM3 (134-434) D 12/09/17 07:00 MPV 7.6 fl (7.5-11.1) 12/09/17 07:00 Sodium 136 mmol/L (136-145) 12/09/17 07:00 Potassium 3.7 mmol/L (3.5-5.1) 12/09/17 07:00 Chloride 106 mmol/L (98-107) 12/09/17 07:00 Carbon Dioxide 28 mmol/L (21-32) 12/09/17 07:00 Anion Gap 2 (8-16) L 12/09/17 07:00 BUN 20 mg/dL (7-18) H 12/09/17 07:00 Creatinine 0.9 mg/dL (0.7-1.3) 12/09/17 07:00 Creat Clearance w eGFR > 60 (>60) 12/09/17 07:00 Random Glucose 85 mg/dL (74-106) D 12/09/17 07:00 Calcium 8.6 mg/dL (8.5-10.1) 12/09/17 07:00 Total Bilirubin 0.3 mg/dL (0.2-1.0) 12/09/17 07:00 AST 14 U/L (15-37) L D 12/09/17 07:00 ALT 23 U/L (12-78) D 12/09/17 07:00 Alkaline Phosphatase 71 U/L (45-117) 12/09/17 07:00 Total Protein 7.2 g/dl (6.4-8.2) 12/09/17 07:00 Albumin 3.5 g/dl (3.4-5.0) 12/09/17 07:00 Assessment: 12/09/17 11:52 WITHDRAWAL SX Plan: CONTINUE DETOX INCREASE PO FLUIDS
--- NOTE | 2017-12-09 12:33 | CONSULT ---
[facility] Psychiatric Consult - Data Date of interview: 12/09/17 Admission source: [facility] Identifying data: One of several admissions to [facility] for this 32 y/o male seeking detox treatment on for heroin dependence.Patient is single without children,domiciled,unemployed and supported by relatives. Substance Abuse History: Confirmed by patient in this interview.Details in current [facility] report : Smoking history: Current some day smoker. Have you smoked in the past 12 months: Yes. Aproximately how many cigarettes per day: 1. Cigars Per Day: 0. Hx Chewing Tobacco Use: No. Initiated information on smoking cessation: Yes. 'Breaking Loose' booklet given: 12/08/17. - Substance & Tx. History. Hx Alcohol Use: No. Hx Substance Use: Yes. Substance Use Type : Heroin. Hx Substance Use Treatment: Yes ([facility]). - Substances Abused. HEROIN. Route: Injection. Frequency: Daily. Amount used: 5 BAGS. Age of first use: 26. Date of Last Use: 12/08/17 Medical History: Patient denies medical problems. Psychiatric History: No history of psychiatric hospitalizations.Patient denies past or current contact with psychiatric OPD care providers.Not on psychotropic medications.Mr Chaves denies history of suicide attempts. Physical/Sexual Abuse/Trauma History: Patient denies. Additional Comment: Urine Drug Screen Results: OPI-Opiates.Noted. Mental Status Exam - Mental Status Exam Alert and Oriented to: Time, Place, Person Cognitive Function: Good Patient Appearance: Well Groomed Mood: Hopeful, Euthymic Affect: Appropriate, Normal Range Patient Behavior: Fatigued, Appropriate, Cooperative Speech Pattern: Clear Voice Loudness: Normal Thought Process: Intact, Goal Oriented Thought Disorder: Not Present Hallucinations: Denies Suicidal Ideation: Denies Homicidal Ideation: Denies Insight/Judgement: Poor Sleep: Fair Appetite: Good Muscle strength/Tone: Normal Gait/Station: Normal Psychiatric Findings - Problem List ([place] 1, 2,3) (1) Opioid dependence with withdrawal Current Visit: Yes Status: Acute (2) Nicotine dependence Current Visit: Yes Status: Acute Qualifiers: Nicotine product type: cigarettes Substance use status: in withdrawal Qualified Code(s): F17.213 - Nicotine dependence, cigarettes, with withdrawal - Initial Treatment Plan Initial Treatment Plan: Pychoeducation.Detoxification protocol in effect.Observation.
--- NOTE | 2017-12-09 13:10 | EKG ---
Test Reason : Blood Pressure : / mmHG Vent. Rate : 070 BPM Atrial Rate : 070 BPM P-R Int : 180 ms QRS Dur : 090 ms QT Int : 388 ms P-R-T Axes : 070 014 032 degrees QTc Int : 419 ms NORMAL SINUS RHYTHM POSSIBLE LEFT ATRIAL ENLARGEMENT BORDERLINE ECG WHEN COMPARED WITH ECG OF 09-SEP-2017 01:06, VENT. RATE HAS INCREASED BY 23 BPM T WAVE INVERSION NO LONGER EVIDENT IN ANTERIOR LEADS Confirmed by CHEYENNE FARRELL MD ([id number]) on 12/09/2017 1:10:02 PM Referred By: Confirmed By:CHEYENNE FARRELL MD
[2017-12-09] MEDS: THIAMINE HCL 100 MG TABLET (FP) PO SCH (22:31)
[2017-12-09] MEDS: MELATONIN 5 MG TABLETS PO PRN (22:31)
[2017-12-10] MEDS: diazePAM 5 MG TABLET PO PRN ×6 (00:22→23:34)
[2017-12-10] MEDS ORDERED: METHADONE HCL 10 MG TABLET (FOR DETOX USE ONLY) PO ONE (10:00)
[2017-12-10] MEDS: PRENATAL VITAMINS W/ FOLIC ACID TABLET (FP) PO SCH (10:08)
[2017-12-10] MEDS ORDERED: COLLOIDAL OATMEAL 1 BAR EACH TP PRN (12:18)
[2017-12-10] MEDS ORDERED: BENZOYL PEROXIDE 5% 60 GM GEL..GRAM. TP ONE (13:00)
--- NOTE | 2017-12-10 17:16 | PN ---
BHS COWS - Scale Resting Pulse: 0= [place] 80 or Below Sweatin=Flushed/Facial Moisture Restless Observation: 1= Difficult to Sit Still Pupil Size: 0= Normal to Room Light Bone or Joint Aches: 2= Severe Diffuse Aches Runny Nose/ Eye Tearin= Nasal Congestion GI Upset > 30mins: 0= None Tremor Observation of Outstretched Hands: 0= None Yawning Observation: 2= >3x During Session Anxiety or Irritability: 2=Irritable/Anxious Goose Flesh Skin: 3=Piloe[place] COWS Score: 13 BHS Progress Note (SOAP) Subjective: Body Aches, Anxious, Sweating, Interrupted Sleep. Objective: PATIENT A & O X 3, OBSERVED AMBULATING ON UNIT. NO ACUTE DISTRESS. 12/10/17 17:18 Vital Signs Temperature 97.1 F L 12/10/17 14:20 Pulse Rate 67 12/10/17 14:20 Respiratory Rate 18 12/10/17 14:20 Blood Pressure 101/72 12/10/17 14:20 O2 Sat by Pulse Oximetry (%) Laboratory Tests 12/09/17 12/09/17 12/09/17 07:00 07:00 07:00 WBC 5.8 D RBC 4.50 Hgb 13.3 Hct 39.2 MCV 87.1 MCH 29.7 MCHC 34.1 RDW 13.7 Plt Count 235 D MPV 7.6 Sodium 136 Potassium 3.7 Chloride 106 Carbon Dioxide 28 Anion Gap 2 L BUN 20 H Creatinine 0.9 Creat Clearance w eGFR > 60 Random Glucose 85 D Calcium 8.6 Total Bilirubin 0.3 AST 14 L D ALT 23 D Alkaline Phosphatase 71 Total Protein 7.2 Albumin 3.5 RPR Titer Nonreactive HIV 1&2 Antibody Screen HIV P24 Antigen 12/09/17 07:00 WBC RBC Hgb Hct MCV MCH MCHC RDW Plt Count MPV Sodium Potassium Chloride Carbon Dioxide Anion Gap BUN Creatinine Creat Clearance w eGFR Random Glucose Calcium Total Bilirubin AST ALT Alkaline Phosphatase Total Protein Albumin RPR Titer HIV 1&2 Antibody Screen Negative HIV P24 Antigen Negative LABS NOTED. UA RESULTS PENDING. 12/10/17 17:19 Assessment: 12/10/17 17:18 WITHDRAWAL SYMPTOMS. Plan: CONTINUE DETOX. INCREASE DAILY PO FLUID INTAKE.
[2017-12-10] MEDS: MELATONIN 5 MG TABLETS PO PRN (22:05)
[2017-12-10] MEDS: THIAMINE HCL 100 MG TABLET (FP) PO SCH (22:05)
[2017-12-11] MEDS: diazePAM 5 MG TABLET PO PRN ×5 (05:37→23:04)
[2017-12-11] MEDS ORDERED: METHADONE HCL 5 MG TABLET (FOR DETOX USE ONLY) PO ONE (10:00)
[2017-12-11] MEDS: PRENATAL VITAMINS W/ FOLIC ACID TABLET (FP) PO SCH (10:41)
--- NOTE | 2017-12-11 11:51 | PN ---
BHS Progress Note (SOAP) Subjective: DECREASED ANXIETY,SWEATS,FATIGUE. Objective: 12/11/17 11:50 Vital Signs Temperature 97.8 F 12/11/17 09:21 Pulse Rate 65 12/11/17 09:21 Respiratory Rate 18 12/11/17 09:21 Blood Pressure 120/77 12/11/17 09:21 O2 Sat by Pulse Oximetry (%) Laboratory Last Values WBC 5.8 K/mm3 (4.0-10.0) D 12/09/17 07:00 RBC 4.50 M/mm3 (4.00-5.60) 12/09/17 07:00 Hgb 13.3 GM/dL (11.7-16.9) 12/09/17 07:00 Hct 39.2 % (35.4-49) 12/09/17 07:00 MCV 87.1 fl (80-96) 12/09/17 07:00 MCH 29.7 pg (25.7-33.7) 12/09/17 07:00 MCHC 34.1 g/dl (32.0-35.9) 12/09/17 07:00 RDW 13.7 % (11.9-15.9) 12/09/17 07:00 Plt Count 235 K/MM3 (134-434) D 12/09/17 07:00 MPV 7.6 fl (7.5-11.1) 12/09/17 07:00 Sodium 136 mmol/L (136-145) 12/09/17 07:00 Potassium 3.7 mmol/L (3.5-5.1) 12/09/17 07:00 Chloride 106 mmol/L (98-107) 12/09/17 07:00 Carbon Dioxide 28 mmol/L (21-32) 12/09/17 07:00 Anion Gap 2 (8-16) L 12/09/17 07:00 BUN 20 mg/dL (7-18) H 12/09/17 07:00 Creatinine 0.9 mg/dL (0.7-1.3) 12/09/17 07:00 Creat Clearance w eGFR > 60 (>60) 12/09/17 07:00 Random Glucose 85 mg/dL (74-106) D 12/09/17 07:00 Calcium 8.6 mg/dL (8.5-10.1) 12/09/17 07:00 Total Bilirubin 0.3 mg/dL (0.2-1.0) 12/09/17 07:00 AST 14 U/L (15-37) L D 12/09/17 07:00 ALT 23 U/L (12-78) D 12/09/17 07:00 Alkaline Phosphatase 71 U/L (45-117) 12/09/17 07:00 Total Protein 7.2 g/dl (6.4-8.2) 12/09/17 07:00 Albumin 3.5 g/dl (3.4-5.0) 12/09/17 07:00 RPR Titer Nonreactive (NONREACTIVE) 12/09/17 07:00 HIV 1&2 Antibody Screen Negative 12/09/17 07:00 HIV P24 Antigen Negative 12/09/17 07:00 UA RESULTS PENDING. Assessment: 12/11/17 11:51 WITHDRAWAL SX Plan: CONTINUE DETOX
[2017-12-11 14:19] LABS: URINE APPEARANCE CLEAR; URINE BILIRUBIN NEGATIVE (<2.0 mg/dL); URINE BLOOD NEGATIVE (NEGATIVE); URINE COLOR STRAW; URINE GLUCOSE (UA) NEGATIVE (NEGATIVE); URINE KETONE NEGATIVE (NEGATIVE); URINE LEUK ESTERASE NEGATIVE (NEGATIVE); URINE NITRITE NEGATIVE (NEGATIVE); URINE PROTEIN NEGATIVE (NEGATIVE); URINE UROBILINOGEN NEGATIVE mg/dL (0.2-1.0)
[2017-12-11] MEDS: BENZOYL PEROXIDE 5% 60 GM GEL..GRAM. TP SCH (14:44)
[2017-12-11] MEDS: THIAMINE HCL 100 MG TABLET (FP) PO SCH (22:14)
[2017-12-11] MEDS: MELATONIN 5 MG TABLETS PO PRN (22:14)
[2017-12-12] MEDS ORDERED: METHADONE HCL 5 MG TABLET (FOR DETOX USE ONLY) PO ONE (10:00)
[2017-12-12] MEDS: BENZOYL PEROXIDE 5% 60 GM GEL..GRAM. TP SCH (10:22)
[2017-12-12] MEDS: PRENATAL VITAMINS W/ FOLIC ACID TABLET (FP) PO SCH (10:23)
--- NOTE | 2017-12-12 14:26 | PN ---
BHS Progress Note (SOAP) Subjective: Anxious, Sweating, Interrupted Sleep. Objective: PATIENT A & O X 2 (UNCERTAIN ABOUT CURRENT DAY/DATE). PATIENT OBSERVED AMBULATING ON UNIT. NO ACUTE DISTRESS. 12/12/17 14:25 Vital Signs Temperature 96.8 F L 12/12/17 13:12 Pulse Rate 74 12/12/17 13:12 Respiratory Rate 18 12/12/17 13:12 Blood Pressure 109/71 12/12/17 13:12 O2 Sat by Pulse Oximetry (%) Laboratory Tests 12/09/17 12/09/17 12/09/17 07:00 07:00 07:00 WBC 5.8 D RBC 4.50 Hgb 13.3 Hct 39.2 MCV 87.1 MCH 29.7 MCHC 34.1 RDW 13.7 Plt Count 235 D MPV 7.6 Sodium 136 Potassium 3.7 Chloride 106 Carbon Dioxide 28 Anion Gap 2 L BUN 20 H Creatinine 0.9 Creat Clearance w eGFR > 60 Random Glucose 85 D Calcium 8.6 Total Bilirubin 0.3 AST 14 L D ALT 23 D Alkaline Phosphatase 71 Total Protein 7.2 Albumin 3.5 Urine Color Urine Appearance Urine pH Ur Specific [place] Urine Protein Urine Glucose (UA) Urine Ketones Urine Blood Urine Nitrite Urine Bilirubin Urine Urobilinogen Ur Leukocyte Esterase RPR Titer Nonreactive HIV 1&2 Antibody Screen HIV P24 Antigen 12/09/17 12/11/17 07:00 10:00 WBC RBC Hgb Hct MCV MCH MCHC RDW Plt Count MPV Sodium Potassium Chloride Carbon Dioxide Anion Gap BUN Creatinine Creat Clearance w eGFR Random Glucose Calcium Total Bilirubin AST ALT Alkaline Phosphatase Total Protein Albumin Urine Color Straw Urine Appearance Clear Urine pH 6.0 Ur Specific [place] 1.011 Urine Protein Negative Urine Glucose (UA) Negative Urine Ketones Negative Urine Blood Negative Urine Nitrite Negative Urine Bilirubin Negative Urine Urobilinogen Negative Ur Leukocyte Esterase Negative RPR Titer HIV 1&2 Antibody Screen Negative HIV P24 Antigen Negative LABS NOTED. Assessment: 12/12/17 14:25 WITHDRAWAL SYMPTOMS. Plan: CONTINUE DETOX. INCREASE DAILY PO FLUID INTAKE.
[2017-12-12] MEDS: hydrOXYzine PAMOATE 50 MG CAPSULE (FP) PO PRN (17:22)
[2017-12-12] MEDS: THIAMINE HCL 100 MG TABLET (FP) PO SCH (22:37)
[2017-12-12] MEDS: MELATONIN 5 MG TABLETS PO PRN (22:38)
[2017-12-13] MEDS ORDERED: METHADONE HCL 10 MG TABLET (FOR DETOX USE ONLY) PO ONE (10:00)
[2017-12-13] MEDS: BENZOYL PEROXIDE 5% 60 GM GEL..GRAM. TP SCH (10:24)
[2017-12-13] MEDS: hydrOXYzine PAMOATE 50 MG CAPSULE (FP) PO PRN ×3 (10:25→22:47)
[2017-12-13] MEDS: PRENATAL VITAMINS W/ FOLIC ACID TABLET (FP) PO SCH (10:25)
--- NOTE | 2017-12-13 14:21 | PN ---
S Progress Note (SOAP) Subjective: Anxious, sweating, interrupted sleep Objective: 12/13/17 14:20 Last Vital Signs Temp Pulse Resp BP Pulse Ox 97.1 F L 73 18 120/78 12/13/17 13:49 12/13/17 13:49 12/13/17 13:49 12/13/17 13:49 Laboratory Tests 12/09/17 12/09/17 12/09/17 07:00 07:00 07:00 WBC 5.8 D RBC 4.50 Hgb 13.3 Hct 39.2 MCV 87.1 MCH 29.7 MCHC 34.1 RDW 13.7 Plt Count 235 D MPV 7.6 Sodium 136 Potassium 3.7 Chloride 106 Carbon Dioxide 28 Anion Gap 2 L BUN 20 H Creatinine 0.9 Creat Clearance w eGFR > 60 Random Glucose 85 D Calcium 8.6 Total Bilirubin 0.3 AST 14 L D ALT 23 D Alkaline Phosphatase 71 Total Protein 7.2 Albumin 3.5 Urine Color Urine Appearance Urine pH Ur Specific [place] Urine Protein Urine Glucose (UA) Urine Ketones Urine Blood Urine Nitrite Urine Bilirubin Urine Urobilinogen Ur Leukocyte Esterase RPR Titer Nonreactive HIV 1&2 Antibody Screen HIV P24 Antigen 12/09/17 12/11/17 07:00 10:00 WBC RBC Hgb Hct MCV MCH MCHC RDW Plt Count MPV Sodium Potassium Chloride Carbon Dioxide Anion Gap BUN Creatinine Creat Clearance w eGFR Random Glucose Calcium Total Bilirubin AST ALT Alkaline Phosphatase Total Protein Albumin Urine Color Straw Urine Appearance Clear Urine pH 6.0 Ur Specific [place] 1.011 Urine Protein Negative Urine Glucose (UA) Negative Urine Ketones Negative Urine Blood Negative Urine Nitrite Negative Urine Bilirubin Negative Urine Urobilinogen Negative Ur Leukocyte Esterase Negative RPR Titer HIV 1&2 Antibody Screen Negative HIV P24 Antigen Negative Labs noted: bun 20 Assessment: 12/13/17 14:21 Withdrawal symptoms Noted with azotemia Plan: Continue detox Azotemia: encouraged to drink more water for hydration
[2017-12-13] MEDS: THIAMINE HCL 100 MG TABLET (FP) PO SCH (22:11)
[2017-12-13] MEDS: MELATONIN 5 MG TABLETS PO PRN (22:11)
[2017-12-14] MEDS: hydrOXYzine PAMOATE 50 MG CAPSULE (FP) PO PRN (05:56)
[2017-12-14] MEDS ORDERED: METHADONE HCL 5 MG TABLET (FOR DETOX USE ONLY) PO ONE (06:00)
[2017-12-14 06:05] VITALS: BP 111/74; PULSE 66; TEMP 96.2
--- NOTE | 2017-12-14 13:50 | PN ---
S Progress Note (SOAP) Subjective: Denies any complaints Objective: 12/14/17 13:49 A & O x 3 Vital Signs Temperature 96.2 F L 12/14/17 06:05 Pulse Rate 66 12/14/17 06:05 Respiratory Rate 18 12/14/17 06:05 Blood Pressure 111/74 12/14/17 06:05 O2 Sat by Pulse Oximetry (%) Assessment: 12/14/17 13:49 completion of detox Plan: for discharge
--- NOTE | 2017-12-14 13:54 | DS ---
[facility] Detox Discharge Summary Admission Date: 12/08/17 Discharge Date: 12/14/17 - History Additional Comments: pt will do aftercare by attending outpatient rehab clinic. In no acute distress A & O x 3 - Physical Exam Results Vital Signs: Vital Signs Temperature 96.2 F L 12/14/17 06:05 Pulse Rate 66 12/14/17 06:05 Respiratory Rate 18 12/14/17 06:05 Blood Pressure 111/74 12/14/17 06:05 O2 Sat by Pulse Oximetry (%) Pertinent Admission Physical Exam Findings: withdrawal sx - Treatment Hospital Course: Detox Protocol Followed, Detoxed Safely, Responded well, Discharged Condition Good - Medication Discharge Medications: Ambulatory Orders NK [No Known Home Medication] 12/08/17 - Diagnosis (1) Opioid dependence with withdrawal Status: Acute (2) Nicotine dependence Status: Chronic Qualifiers: Nicotine product type: cigarettes Substance use status: in withdrawal Qualified Code(s): F17.213 - Nicotine dependence, cigarettes, with withdrawal (3) Depression (emotion) Status: Chronic Qualifiers: Depression Type: dysthymia Qualified Code(s): F34.1 - Dysthymic disorder - AMA Did Patient Leave Against Medical Advice: No
== END 2017-12-14 09:07 | disposition home or self-care (01) | DRG 773 ==
LOC: YASAS 22:36 → Y3N 23:28
PROVIDERS: ADMIT Internal Medicine; ATTEND Internal Medicine
PROC: HZ2ZZZZ Detoxification Services for Substance Abuse Treatment (ICD-10-PCS; principal; 2017-12-08)
DX: F11.23 Opioid dependence with withdrawal (principal); F17.213 Nicotine dependence, cigarettes, with withdrawal; F34.1 Dysthymic disorder; R79.89 Other specified abnormal findings of blood chemistry; R63.4 Abnormal weight loss; Z68.21 Body mass index [BMI] 21.0-21.9, adult
CPT/HCPCS: 36415; 80053; 81003; 85027; 86593; 87389; 93005; 93010

== ENCOUNTER 2018-07-21 19:11 | Inpatient (IN) | payer OTHER ==
[2018-07-21 19:56] VITALS: BMI 20.9
--- NOTE | 2018-07-22 00:05 | HP ---
COWS - Scale Resting Pulse: 0= [place] 80 or Below Sweatin=Flushed/Facial Moisture Restless Observation: 0= Sits Still Pupil Size: 0= Normal to Room Light Bone or Joint Aches: 4=Acute Joint/Muscle Pain Runny Nose/ Eye Tearin= Runny Nose/Eyes GI Upset > 30mins: 1= Stomach Cramp Tremor Observation: 2= Slight Tremor Visible Yawning Observation: 1= 1-2x During Session Anxiety or Irritability: 2=Irritable/Anxious Goose Flesh Skin: 0=Smooth Skin COWS Score: 14 CIWA Score - Admission Criteria [facility]ASAS Guidelines: Admission for Medically Managed Detox: Requires at least one of the followin. CIWA greater than 12 2. Seizures within the past 24 hours 3. Delirium tremens within the past 24 hours 4. Hallucinations within the past 24 hours 5. Acute intervention needed for co occurring medical disorder 6. Acute intervention needed for co occurring psychiatric disorder 7. Severe withdrawal that cannot be handled at a lower level of care (continued vomiting, continued diarrhea, abnormal vital signs) requiring intravenous medication and/or fluids 8. Admission ROS [facility] Chief Complaint: Heroin withdrawal symptoms Allergies/Adverse Reactions: Allergies Allergy/AdvReac Type Severity Reaction Status Date / Time No Known Allergies Allergy Verified 04/04/18 20:32 History of Present Illness: 32 years old male with 4 years history of heroin dependence is seeking admission to detox. Patient has been in previous detox and reports 5 months of sobriety. He has medical history of depression and anxiety. He denies suicide attempt and suicidal ideation at this time. Exam Limitations: No Limitations - Ebola screening Have you traveled outside of the country in the last 21 days: No Have you had contact with anyone from an Ebola affected area: No Have you been sick,other than usual withdrawal symptoms: No Do you have a fever: No - Review of Systems Constitutional: Chills, Malaise, Changes in sleep EENT: reports: Sinus Pressure Respiratory: reports: No Symptoms reported Cardiac: reports: No Symptoms Reported GI: reports: Poor Appetite, Poor Fluid Intake, Abdominal cramping : reports: No Symptoms Reported Musculoskeletal: reports: Back Pain Integumentary: reports: Dryness Neuro: reports: Tremors Endocrine: reports: No Symptoms Reported Hematology: reports: No Symptoms Reported Psychiatric: reports: Judgement Intact, Orientated x3, Anxious, Depressed Other Systems: Reviewed and Negative Patient History - Patient Medical History Hx Anemia: No Hx Asthma: No Hx Chronic Obstructive Pulmonary Disease (COPD): No Hx Cancer: No Hx Cardiac Disorders: No Hx Congestive Heart Failure: No Hx Hypertension: No Hx Hypercholesterolemia: No Hx Pacemaker: No HX Cerebrovascular Accident: No Hx Seizures: No Hx Dementia: No Hx Diabetes: No Hx Gastrointestinal Disorders: No Hx Liver Disease: No Hx Genitourinary Disorders: No Hx Sexually Transmitted Disorders: No Hx Renal Disease (ESRD): No Hx Thyroid Disease: No Hx Human Immunodeficiency Virus (HIV): No Hx Hepatitis C: No Hx Depression: Yes (NOT ON MEDICATION ) Hx Suicide Attempt: No (DENIES SUICIDAL IDEATION AT THIS TIME) Hx Bipolar Disorder: No Hx Schizophrenia: No Other Medical History: ANXIETY - NOT ON MEDICATION - Patient Surgical History Past Surgical History: No Hx Neurologic Surgery: No Hx Cataract Extraction: No Hx Cardiac Surgery: No Hx Lung Surgery: No Hx Abdominal Surgery: No Hx Appendectomy: No Hx Cholecystectomy: No Hx Genitourinary Surgery: No Hx Orthopedic Surgery: No Anesthesia Reaction: No - PPD History Previous Implant?: Yes Documented Results: Negative w/proof Implanted On Prior [facility] Admission?: No Date: 12/11/17 Results: 0 mm PPD to be Administered?: No - Reproductive History Patient is a Female of Child Bearing Age (11 -55 yrs old): No (MALE) - Smoking Cessation Smoking history: Never smoked Have you smoked in the past 12 months: No Aproximately how many cigarettes per day: 0 Cigars Per Day: 0 Hx Chewing Tobacco Use: No Initiated information on smoking cessation: No - Substance & Tx. History Hx Alcohol Use: No Hx Substance Use: Yes Substance Use Type: Heroin Hx Substance Use Treatment: Yes ([facility]) - Substances Abused Heroin Route: Injection Frequency: Daily Amount used: 8 BAGS Age of first use: 27 Date of Last Use: 07/21/18 Family Disease History - Family Disease History Family Disease History: [place]: Grandparent Admission Physical Exam BHS - Vital Signs Vital Signs: Vital Signs - 24 hr 07/21/18 19:54 Temperature 97.7 F Pulse Rate 70 Respiratory 18 Rate Blood Pressure 121/64 - Physical General Appearance: Yes: Moderate Distress, Irritable HEENTM: Yes: EOMI, Normal ENT Inspection, Normocephalic, Normal Voice, ALEJANDRA Respiratory: Yes: Lungs Clear, Normal Breath Sounds, No Respiratory Distress Neck: Yes: Supple Breast: Yes: Breast Exam Deferred Cardiology: Yes: Regular Rhythm, Regular Rate Abdominal: Yes: Normal Bowel Sounds, Soft Genitourinary: Yes: Within Normal Limits Back: Yes: Normal Inspection Musculoskeletal: Yes: Back pain Extremities: Yes: Tremors Neurological: Yes: sharebroker II-XII NML intact, Alert, Normal Mood/Affect Integumentary: Yes: Warm Lymphatic: Yes: Within Normal Limits - Diagnostic (1) Nicotine dependence Current Visit: No Status: Inactive Qualifiers: Nicotine product type: cigarettes (2) Opioid dependence with withdrawal Current Visit: Yes Status: Chronic (3) Depression (emotion) Current Visit: Yes Status: Chronic Qualifiers: Depression Type: dysthymia Qualified Code(s): F34.1 - Dysthymic disorder (4) Anxiety Current Visit: Yes Status: Chronic Cleared for Admission [facility] - Detox or Rehab [facility] Level of Care: Medically Managed Detox Regimen/Protocol: Methadone [facility] Breath Alcohol Content Breath Alcohol Content: 0 Urine Pregancy Test - Result Urine Test Results: Negative- NO Line Present Urine Drug Screen - Results Drug Screen Negative: No Urine Drug Screen Results: OPI-Opiates
[2018-07-22] MEDS ORDERED: ACETAMINOPHEN 325 MG TABLET (FP) PO PRN (00:16)
[2018-07-22] MEDS ORDERED: LOPERAMIDE HCL 2 MG CAPSULE PO PRN (00:16)
[2018-07-22] MEDS ORDERED: METHADONE HCL 10 MG TABLET (FOR DETOX USE ONLY) PO ONE ×3 (00:16→23:00)
[2018-07-22] MEDS ORDERED: MENTHOL/PHENOL 1 EACH UD MM PRN (00:16)
[2018-07-22] MEDS ORDERED: MAGNESIUM CITRATE 300 ML BOTTLE PO PRN (00:16)
[2018-07-22] MEDS ORDERED: MAG HYDROX/AL HYDROX/SIMETH 30 ML UNIT-DOSE CUP PO PRN (00:16)
[2018-07-22] MEDS ORDERED: IBUPROFEN 400 MG TABLET (FP) PO PRN (00:16)
[2018-07-22] MEDS ORDERED: P-EPHED 60MG/TRIPROLIDI 2.5MG TABLET PO PRN (00:16)
[2018-07-22] MEDS ORDERED: MAGNESIUM HYDROX 2400MG/30ML ORAL SUSPENSION 30 ML CUP PO PRN (00:16)
[2018-07-22] MEDS ORDERED: guaiFENesin/D-METHORPHAN HB 10 ML UNIT-DOSE CUPS PO PRN (00:16)
[2018-07-22] MEDS: diazePAM 5 MG TABLET PO PRN ×5 (01:30→22:28)
[2018-07-22] MEDS: PRENATAL VITAMINS W/ FOLIC ACID TABLET (FP) PO SCH (10:14)
--- NOTE | 2018-07-22 11:55 | EKG ---
Test Reason : Blood Pressure : / mmHG Vent. Rate : 056 BPM Atrial Rate : 056 BPM P-R Int : 160 ms QRS Dur : 092 ms QT Int : 434 ms P-R-T Axes : 015 040 036 degrees QTc Int : 418 ms SINUS BRADYCARDIA INCOMPLETE RIGHT BUNDLE BRANCH BLOCK BORDERLINE ECG WHEN COMPARED WITH ECG OF 05-APR-2018 11:31, LEFT POSTERIOR FASCICULAR BLOCK IS NO LONGER PRESENT BORDERLINE CRITERIA FOR INFERIOR INFARCT ARE NO LONGER PRESENT Confirmed by ISRAEL CEE MD ([id number]) on 07/22/2018 11:55:11 AM Referred By: Confirmed By:ISRAEL CEE MD
--- NOTE | 2018-07-22 12:27 | PN ---
BHS COWS - Scale Resting Pulse: 0= [place] 80 or Below Sweatin=Flushed/Facial Moisture Restless Observation: 3= Extraneous Movement Pupil Size: 0= Normal to Room Light Bone or Joint Aches: 2= Severe Diffuse Aches Runny Nose/ Eye Tearin= Runny Nose/Eyes GI Upset > 30mins: 3= Vomiting/Diarrhea Tremor Observation of Outstretched Hands: 2= Slight Tremor Visible Yawning Observation: 0= None Anxiety or Irritability: 2=Irritable/Anxious Goose Flesh Skin: 0=Smooth Skin COWS Score: 16 BHS Progress Note (SOAP) Subjective: Sweating, anxious, interrupted sleep Objective: 07/22/18 12:25 Last Vital Signs Temp Pulse Resp BP Pulse Ox 97.2 F L 66 18 101/68 07/22/18 09:13 07/22/18 09:13 07/22/18 09:13 07/22/18 09:13 Admission labs ordered for tomorrow. Lab results from 03/2018 noted Assessment: 07/22/18 12:25 Withdrawal sxs Plan: Continue detox Encouraged PO water intake
[2018-07-22] MEDS ORDERED: MELATONIN 5 MG TABLETS PO PRN (22:00)
[2018-07-22] MEDS: THIAMINE HCL 100 MG TABLET (FP) PO SCH (22:28)
[2018-07-23] MEDS: diazePAM 5 MG TABLET PO PRN ×5 (03:47→22:32)
[2018-07-23] MEDS: PRENATAL VITAMINS W/ FOLIC ACID TABLET (FP) PO SCH (09:40)
[2018-07-23] MEDS ORDERED: METHADONE HCL 10 MG TABLET (FOR DETOX USE ONLY) PO ONE (10:00)
[2018-07-23 10:06] LABS: HEMATOCRIT 43.5 % (35.4-49); HEMOGLOBIN 14.1 GM/dL (11.7-16.9); MCH 27.8 pg (25.7-33.7); MCHC 32.5 g/dl (32.0-35.9); MEAN CELL VOLUME 85.6 fl (80-96); MEAN PLT VOLUME 7.5 fl (7.5-11.1); PLATELET COUNT 226 K/MM3 (134-434); RBC 5.08 M/mm3 (4.00-5.60); RDW 14.1 % (11.9-15.9); WHITE BLOOD COUNT 3.9 K/mm3 (4.0-10.0)
[2018-07-23 10:55] LABS: ALBUMIN 3.6 g/dl (3.4-5.0); ALK PHOS 89 U/L (45-117); ANION GAP 6 MMOL/L (8-16); BILIRUBIN,TOTAL 0.7 mg/dL (0.2-1); BLOOD UREA NITROGEN 14 mg/dL (7-18); CHLORIDE 101 mmol/L (98-107); CO2 31 mmol/L (21-32); CREATININE 0.9 mg/dL (0.55-1.3); GLUCOSE,RANDOM 78 mg/dL (74-106); POTASSIUM 4.7 mmol/L (3.5-5.1); SGOT/AST 22 U/L (15-37); SGPT/ALT 31 U/L (13-61); SODIUM 138 mmol/L (136-145); TOT PROT 7.6 g/dl (6.4-8.2)
--- NOTE | 2018-07-23 12:49 | PN ---
BHS COWS - Scale Resting Pulse: 0= [place] 80 or Below Sweatin= Chills/Flushing Restless Observation: 3= Extraneous Movement Pupil Size: 0= Normal to Room Light Bone or Joint Aches: 2= Severe Diffuse Aches Runny Nose/ Eye Tearin= None GI Upset > 30mins: 2= Nausea/Diarrhea Tremor Observation of Outstretched Hands: 2= Slight Tremor Visible Yawning Observation: 1= 1-2x During Session Anxiety or Irritability: 2=Irritable/Anxious Goose Flesh Skin: 0=Smooth Skin COWS Score: 13 BHS Progress Note (SOAP) Subjective: Sweating, interrupted sleep, anxious. Patient requesting prn vistaril. Objective: 07/23/18 12:47 Last Vital Signs Temp Pulse Resp BP Pulse Ox 97.0 F L 60 16 105/65 07/23/18 10:03 07/23/18 10:03 07/23/18 10:03 07/23/18 10:03 Laboratory Tests 07/23/18 07/23/18 07/23/18 07:00 07:00 07:00 WBC 3.9 L RBC 5.08 Hgb 14.1 Hct 43.5 MCV 85.6 MCH 27.8 MCHC 32.5 RDW 14.1 Plt Count 226 D MPV 7.5 Sodium 138 Potassium 4.7 Chloride 101 Carbon Dioxide 31 Anion Gap 6 L BUN 14 Creatinine 0.9 Creat Clearance w eGFR > 60 Random Glucose 78 Calcium 9.0 Total Bilirubin 0.7 AST 22 ALT 31 Alkaline Phosphatase 89 Total Protein 7.6 Albumin 3.6 RPR Titer Nonreactive Labs reviewed Assessment: 07/23/18 12:48 Withdrawal symptoms Plan: Continue detox Encouraged PO water intake
[2018-07-23] MEDS: THIAMINE HCL 100 MG TABLET (FP) PO SCH (22:32)
[2018-07-23 23:30] LABS: URINE APPEARANCE TURBID; URINE BILIRUBIN NEGATIVE (<2.0 mg/dL); URINE COLOR YELLOW; URINE GLUCOSE (UA) NEGATIVE (NEGATIVE); URINE KETONE NEGATIVE (NEGATIVE); URINE LEUK ESTERASE NEGATIVE (NEGATIVE); URINE NITRITE NEGATIVE (NEGATIVE); URINE PROTEIN NEGATIVE (NEGATIVE); URINE UROBILINOGEN NEGATIVE mg/dL (0.2-1.0)
[2018-07-24] MEDS: hydrOXYzine PAMOATE 50 MG CAPSULE (FP) PO PRN (00:46)
[2018-07-24] MEDS: diazePAM 5 MG TABLET PO PRN ×4 (06:34→22:55)
[2018-07-24] MEDS ORDERED: METHADONE HCL 5 MG TABLET (FOR DETOX USE ONLY) PO ONE (10:00)
[2018-07-24] MEDS: PRENATAL VITAMINS W/ FOLIC ACID TABLET (FP) PO SCH (10:19)
--- NOTE | 2018-07-24 11:24 | CONSULT ---
[facility] Psychiatric Consult - Data Date of interview: 07/24/18 Admission source: [facility] Identifying data: Readmission to [facility] for this 32 y/o male seeking detoxification treatment, on , for heroin dependence. Patient is single without children, domiciled, unemployed and supported by relatives. Substance Abuse History: Discussed in this interview. Mr Chaves admits to using one bundle of heroin (intravenous injections) on a daily basis. Started using heroin five years ago. Additional details in current [facility] report : Smoking history: Never smoked. Have you smoked in the past 12 months: No. Aproximately how many cigarettes per day: 0. Cigars Per Day: 0. Hx Chewing Tobacco Use: No. Initiated information on smoking cessation: No. - Substance & Tx. History. Hx Alcohol Use: No. Hx Substance Use: Yes. Substance Use Type : Heroin. Hx Substance Use Treatment: Yes ([facility]). - Substances Abused. Heroin. Route: Injection. Frequency: Daily. Amount used: 8 BAGS. Age of first use: 27. Date of Last Use: 07/21/18 Medical History: Patient endorses good general health. Psychiatric History: Patient denies history of psychiatric hospitalizations. No recent contact with psychiatric OPD care providers. Mr Win denies taking psychotropic medications but he is amenable to a trial of questiapine at bedtime for insomnia. No reported history of suicide attempts. Physical/Sexual Abuse/Trauma History: Patient denies history of abuse. Additional Comment: Urine Drug Screen Results: OPI-Opiates. Noted. Mental Status Exam - Mental Status Exam Alert and Oriented to: Time, Place, Person Cognitive Function: Good Patient Appearance: Well Groomed Mood: Withdrawn, Apprehensive Affect: Appropriate, Normal Range Patient Behavior: Fatigued, Cooperative Speech Pattern: Clear Voice Loudness: Normal Thought Process: Intact, Goal Oriented Thought Disorder: Not Present Hallucinations: Denies Suicidal Ideation: Denies Homicidal Ideation: Denies Insight/Judgement: Poor Sleep: Poorly, Difficulty falling asleep (requests seroquel ) Appetite: Good Muscle strength/Tone: Normal Gait/Station: Normal Psychiatric Findings - Problem List ([place] 1, 2,3) (1) Opioid dependence with withdrawal Current Visit: Yes Status: Acute (2) Substance induced mood disorder Current Visit: Yes Status: Acute (3) Insomnia Current Visit: Yes Status: Acute - Initial Treatment Plan Initial Treatment Plan: Psychoeducation. Sleep hygiene. Detoxification in progress. Measures for relapse prevention : discussed with the patient. Noted history of treatment with suboxone (10/2017) : patient admits to non-adherence. Group, supportive therapy. NA meetings. Seroquel 50 mg po hs. Side effects/ benefits discussed with patient. Educated about the risk of metabolic syndrome and the use (off-label) of seroquel to manage insomnia. Mr Chaves replies that he is fully aware of this fact and he argues that seroquel has been effective + well tolerated in his case. Insists on the inclusion of that drug in the current regime of medications. Observation.
--- NOTE | 2018-07-24 12:34 | PN ---
[facility] Progress Note Note: PATIENT C/O BODY ACHES, INSOMNIA AND ANXIETY Vital Signs Temperature 96.7 F L 07/24/18 09:17 Pulse Rate 67 07/24/18 09:17 Respiratory Rate 18 07/24/18 09:17 Blood Pressure 104/68 07/24/18 09:17 O2 Sat by Pulse Oximetry (%) Laboratory Tests 07/23/18 07/23/18 07/23/18 07:00 07:00 07:00 WBC 3.9 L RBC 5.08 Hgb 14.1 Hct 43.5 MCV 85.6 MCH 27.8 MCHC 32.5 RDW 14.1 Plt Count 226 D MPV 7.5 Sodium 138 Potassium 4.7 Chloride 101 Carbon Dioxide 31 Anion Gap 6 L BUN 14 Creatinine 0.9 Creat Clearance w eGFR > 60 Random Glucose 78 Calcium 9.0 Total Bilirubin 0.7 AST 22 ALT 31 Alkaline Phosphatase 89 Total Protein 7.6 Albumin 3.6 Urine Color Urine Appearance Urine pH Ur Specific [place] Urine Protein Urine Glucose (UA) Urine Ketones Urine Blood Urine Nitrite Urine Bilirubin Urine Urobilinogen Ur Leukocyte Esterase RPR Titer Nonreactive 07/23/18 14:47 WBC RBC Hgb Hct MCV MCH MCHC RDW Plt Count MPV Sodium Potassium Chloride Carbon Dioxide Anion Gap BUN Creatinine Creat Clearance w eGFR Random Glucose Calcium Total Bilirubin AST ALT Alkaline Phosphatase Total Protein Albumin Urine Color Yellow Urine Appearance Turbid Urine pH 5.0 D Ur Specific [place] 1.028 Urine Protein Negative Urine Glucose (UA) Negative Urine Ketones Negative Urine Blood Negative Urine Nitrite Negative Urine Bilirubin Negative Urine Urobilinogen Negative Ur Leukocyte Esterase Negative RPR Titer PE: ALERT AND ORIENTED X 3 SKIN WARM AND DRY EXT FULL ROM, AMB AD LEIGH ANN NEURO: CN [id number] GROSSLY INTACT MILD ANXIOUS A/P: WITHDRAWAL SX INSOMNIA PSYCH CONSULT CONTINUE DETOX ENCOURAGE ORAL FLUIDS CONTINUE TO MONITOR CLINICALLY
[2018-07-24] MEDS: QUEtiapine FUMARATE 50 MG TABLET PO SCH (22:26)
[2018-07-24] MEDS: THIAMINE HCL 100 MG TABLET (FP) PO SCH (22:26)
[2018-07-24] MEDS: CYCLOBENZAPRINE HCL 10 MG TABLET (FP) PO PRN (22:27)
[2018-07-25] MEDS: hydrOXYzine PAMOATE 50 MG CAPSULE (FP) PO PRN ×3 (05:32→22:26)
[2018-07-25] MEDS ORDERED: METHADONE HCL 5 MG TABLET (FOR DETOX USE ONLY) PO ONE (10:00)
[2018-07-25] MEDS: CYCLOBENZAPRINE HCL 10 MG TABLET (FP) PO PRN ×2 (10:06→22:26)
[2018-07-25] MEDS: PRENATAL VITAMINS W/ FOLIC ACID TABLET (FP) PO SCH (10:06)
--- NOTE | 2018-07-25 15:36 | PN ---
BHS Progress Note (SOAP) Subjective: Sweating, fatigue Objective: 07/25/18 15:35 Last Vital Signs Temp Pulse Resp BP Pulse Ox 96.1 F L 81 18 109/69 07/25/18 13:17 07/25/18 13:17 07/25/18 13:17 07/25/18 13:17 Laboratory Tests 07/23/18 07/23/18 07/23/18 07:00 07:00 07:00 WBC 3.9 L RBC 5.08 Hgb 14.1 Hct 43.5 MCV 85.6 MCH 27.8 MCHC 32.5 RDW 14.1 Plt Count 226 D MPV 7.5 Sodium 138 Potassium 4.7 Chloride 101 Carbon Dioxide 31 Anion Gap 6 L BUN 14 Creatinine 0.9 Creat Clearance w eGFR > 60 Random Glucose 78 Calcium 9.0 Total Bilirubin 0.7 AST 22 ALT 31 Alkaline Phosphatase 89 Total Protein 7.6 Albumin 3.6 Urine Color Urine Appearance Urine pH Ur Specific [place] Urine Protein Urine Glucose (UA) Urine Ketones Urine Blood Urine Nitrite Urine Bilirubin Urine Urobilinogen Ur Leukocyte Esterase RPR Titer Nonreactive 07/23/18 14:47 WBC RBC Hgb Hct MCV MCH MCHC RDW Plt Count MPV Sodium Potassium Chloride Carbon Dioxide Anion Gap BUN Creatinine Creat Clearance w eGFR Random Glucose Calcium Total Bilirubin AST ALT Alkaline Phosphatase Total Protein Albumin Urine Color Yellow Urine Appearance Turbid Urine pH 5.0 D Ur Specific [place] 1.028 Urine Protein Negative Urine Glucose (UA) Negative Urine Ketones Negative Urine Blood Negative Urine Nitrite Negative Urine Bilirubin Negative Urine Urobilinogen Negative Ur Leukocyte Esterase Negative RPR Titer Labs reviewed Assessment: 07/25/18 15:35 Withdrawal symptoms Plan: Continue detox Encouraged PO water intake
[2018-07-25] MEDS: QUEtiapine FUMARATE 50 MG TABLET PO SCH (22:26)
[2018-07-25] MEDS: THIAMINE HCL 100 MG TABLET (FP) PO SCH (22:26)
[2018-07-26] MEDS ORDERED: METHADONE HCL 10 MG TABLET (FOR DETOX USE ONLY) PO ONE (10:00)
[2018-07-26] MEDS: PRENATAL VITAMINS W/ FOLIC ACID TABLET (FP) PO SCH (10:14)
[2018-07-26] MEDS: CYCLOBENZAPRINE HCL 10 MG TABLET (FP) PO PRN ×2 (10:15→22:21)
[2018-07-26] MEDS: hydrOXYzine PAMOATE 50 MG CAPSULE (FP) PO PRN ×3 (10:15→22:22)
--- NOTE | 2018-07-26 11:20 | PN ---
BHS Progress Note (SOAP) Subjective: feeling better no tremor no body ache less swet Objective: 07/26/18 11:19 Vital Signs Temperature 97.0 F L 07/26/18 09:11 Pulse Rate 64 07/26/18 09:11 Respiratory Rate 18 07/26/18 09:11 Blood Pressure 105/63 07/26/18 09:11 O2 Sat by Pulse Oximetry (%) Laboratory Last Values WBC 3.9 K/mm3 (4.0-10.0) L 07/23/18 07:00 RBC 5.08 M/mm3 (4.00-5.60) 07/23/18 07:00 Hgb 14.1 GM/dL (11.7-16.9) 07/23/18 07:00 Hct 43.5 % (35.4-49) 07/23/18 07:00 MCV 85.6 fl (80-96) 07/23/18 07:00 MCH 27.8 pg (25.7-33.7) 07/23/18 07:00 MCHC 32.5 g/dl (32.0-35.9) 07/23/18 07:00 RDW 14.1 % (11.9-15.9) 07/23/18 07:00 Plt Count 226 K/MM3 (134-434) D 07/23/18 07:00 MPV 7.5 fl (7.5-11.1) 07/23/18 07:00 Sodium 138 mmol/L (136-145) 07/23/18 07:00 Potassium 4.7 mmol/L (3.5-5.1) 07/23/18 07:00 Chloride 101 mmol/L (98-107) 07/23/18 07:00 Carbon Dioxide 31 mmol/L (21-32) 07/23/18 07:00 Anion Gap 6 MMOL/L (8-16) L 07/23/18 07:00 BUN 14 mg/dL (7-18) 07/23/18 07:00 Creatinine 0.9 mg/dL (0.55-1.3) 07/23/18 07:00 Creat Clearance w eGFR > 60 (>60) 07/23/18 07:00 Random Glucose 78 mg/dL (74-106) 07/23/18 07:00 Calcium 9.0 mg/dL (8.5-10.1) 07/23/18 07:00 Total Bilirubin 0.7 mg/dL (0.2-1) 07/23/18 07:00 AST 22 U/L (15-37) 07/23/18 07:00 ALT 31 U/L (13-61) 07/23/18 07:00 Alkaline Phosphatase 89 U/L (45-117) 07/23/18 07:00 Total Protein 7.6 g/dl (6.4-8.2) 07/23/18 07:00 Albumin 3.6 g/dl (3.4-5.0) 07/23/18 07:00 Urine Color Yellow 07/23/18 14:47 Urine Appearance Turbid 07/23/18 14:47 Urine pH 5.0 (5.0-8.0) D 07/23/18 14:47 Ur Specific [place] 1.028 (1.010-1.035) 07/23/18 14:47 Urine Protein Negative (NEGATIVE) 07/23/18 14:47 Urine Glucose (UA) Negative (NEGATIVE) 07/23/18 14:47 Urine Ketones Negative (NEGATIVE) 07/23/18 14:47 Urine Blood Negative (NEGATIVE) 07/23/18 14:47 Urine Nitrite Negative (NEGATIVE) 07/23/18 14:47 Urine Bilirubin Negative (<2.0 mg/dL) 07/23/18 14:47 Urine Urobilinogen Negative mg/dL (0.2-1.0) 07/23/18 14:47 Ur Leukocyte Esterase Negative (NEGATIVE) 07/23/18 14:47 RPR Titer Nonreactive (NONREACTIVE) 07/23/18 07:00 lab noted Assessment: 07/26/18 11:19 mild withdrawal sx Plan: medically supervised detox
[2018-07-26] MEDS: QUEtiapine FUMARATE 50 MG TABLET PO SCH (22:21)
[2018-07-26] MEDS: THIAMINE HCL 100 MG TABLET (FP) PO SCH (22:21)
[2018-07-27 05:58] VITALS: BP 102/63; PULSE 61; TEMP 96.7
[2018-07-27] MEDS ORDERED: METHADONE HCL 5 MG TABLET (FOR DETOX USE ONLY) PO ONE (06:00)
[2018-07-27] MEDS: PRENATAL VITAMINS W/ FOLIC ACID TABLET (FP) PO SCH (09:24)
--- NOTE | 2018-07-27 10:25 | DS ---
[facility] Detox Discharge Summary Admission Date: 07/22/18 Discharge Date: 07/27/18 - History Present History: Opioid Dependence Additional Comments: Detox stay uneventful. Patient completed detox and discharged safely and instructed to follow up with his PCP within 1-2 weeks. Pertinent Past History: Depression Anxiety Opioid dependence - Physical Exam Results Vital Signs: Vital Signs Temperature 96.7 F L 07/27/18 05:58 Pulse Rate 61 07/27/18 05:58 Respiratory Rate 16 07/27/18 05:58 Blood Pressure 102/63 07/27/18 05:58 O2 Sat by Pulse Oximetry (%) Pertinent Admission Physical Exam Findings: Withdrawal symptoms Laboratory Tests 07/23/18 07/23/18 07/23/18 07:00 07:00 07:00 WBC 3.9 L RBC 5.08 Hgb 14.1 Hct 43.5 MCV 85.6 MCH 27.8 MCHC 32.5 RDW 14.1 Plt Count 226 D MPV 7.5 Sodium 138 Potassium 4.7 Chloride 101 Carbon Dioxide 31 Anion Gap 6 L BUN 14 Creatinine 0.9 Creat Clearance w eGFR > 60 Random Glucose 78 Calcium 9.0 Total Bilirubin 0.7 AST 22 ALT 31 Alkaline Phosphatase 89 Total Protein 7.6 Albumin 3.6 Urine Color Urine Appearance Urine pH Ur Specific [place] Urine Protein Urine Glucose (UA) Urine Ketones Urine Blood Urine Nitrite Urine Bilirubin Urine Urobilinogen Ur Leukocyte Esterase RPR Titer Nonreactive 07/23/18 14:47 WBC RBC Hgb Hct MCV MCH MCHC RDW Plt Count MPV Sodium Potassium Chloride Carbon Dioxide Anion Gap BUN Creatinine Creat Clearance w eGFR Random Glucose Calcium Total Bilirubin AST ALT Alkaline Phosphatase Total Protein Albumin Urine Color Yellow Urine Appearance Turbid Urine pH 5.0 D Ur Specific [place] 1.028 Urine Protein Negative Urine Glucose (UA) Negative Urine Ketones Negative Urine Blood Negative Urine Nitrite Negative Urine Bilirubin Negative Urine Urobilinogen Negative Ur Leukocyte Esterase Negative RPR Titer Labs reviewed - Treatment Hospital Course: Detox Protocol Followed, Detoxed Safely, Responded well, Discharged Condition Good - Medication Discharge Medications: Ambulatory Orders NK [No Known Home Medication] 12/08/17 - Diagnosis (1) Anxiety Status: Chronic (2) Depression (emotion) Status: Chronic Qualifiers: Depression Type: dysthymia Qualified Code(s): F34.1 - Dysthymic disorder (3) Opioid dependence with withdrawal Status: Acute - AMA Did Patient Leave Against Medical Advice: No (F/U with PCP within 1-2 weeks)
== END 2018-07-27 08:50 | disposition home or self-care (01) | DRG 773 ==
LOC: YASAS 19:11 → Y3N 07-22 01:00
PROC: HZ2ZZZZ Detoxification Services for Substance Abuse Treatment (ICD-10-PCS; principal; 2018-07-22)
DX: F11.20 Opioid dependence, uncomplicated (principal); F19.24 Other psychoactive substance dependence with psychoactive substance-induced mood disorder; F34.1 Dysthymic disorder; F41.9 Anxiety disorder, unspecified; G47.00 Insomnia, unspecified
CPT/HCPCS: 36415; 80053; 81003; 85027; 86593; 93005; 93010